=== PATIENT | male | born 1965 | race Caucasian/White ===

== ENCOUNTER → 2018-01-08 | Outpatient (CLI) | payer BC ==
[~2018-01-08] MED LIST: ALBU1AER9 INH; SYMIN160 INH; UMEC1INH INH
[2018-01-08 10:58] LABS: BASO % 0.6 %; BASO ABS # 0.04 K/uL (0-0.2); EOS % 2.6 %; EOS ABS # 0.19 K/uL (0-0.5); HEMATOCRIT 40.8 % (42-52); HEMOGLOBIN 14.8 g/dL (14.0-18.0); IG# 0.01 K/uL (0.00-0.02); LYMPH % 22.5 %; LYMPH ABS # 1.63 K/uL (1.2-3.4); MEAN CELL VOLUME 85.5 fL (80-100); MEAN CORPUSCULAR HGB CONC 36.3 g/dl (32-36); MEAN PLATELET VOLUME 10.7 fL (7.4-10.4); MONO ABS # 0.65 K/uL (0.11-0.59); NEUT % 65.2 %; NEUT ABS # 4.74 K/uL (1.4-6.5); PLATELET COUNT 199 K/uL (130-400); RED CELL DISTRIBUTION WIDTH CV 12.8 % (11.5-14.5); RED CELL DISTRIBUTION WIDTH SD 39.8 fL (36.4-46.3); WHITE BLOOD COUNT 7.26 K/uL (4.8-10.8)
[2018-01-08 11:04] LABS: BLOOD UREA NITROGEN 23 mg/dl (7-18); CALCIUM 8.9 mg/dl (8.5-10.1); CARBON DIOXIDE 29 mmol/L (21-32); CHOLESTEROL 184 mg/dl (0-200); CREATININE 1.25 mg/dl (0.60-1.40); GLUCOSE 79 mg/dl (70-99); POTASSIUM 3.6 mmol/L (3.5-5.1); SODIUM 139 mmol/L (136-145)
[2018-01-08 11:08] LABS: LDL CHOLESTEROL CALCULATED 123 mg/dl
== END | disposition home or self-care (01) ==
LOC: C.LABBC 08:37
PROVIDERS: ATTEND Internal Medicine
DX: J44.9 Chronic obstructive pulmonary disease, unspecified (principal); E78.5 Hyperlipidemia, unspecified; Z12.5 Encounter for screening for malignant neoplasm of prostate

== ENCOUNTER 2022-11-16 01:48 | Inpatient (IN) ==
[2022-11-16] MEDS ORDERED: methylPREDNISolone 125 MG/2 ML VIAL IV STA ×2 (02:56→03:31)
[2022-11-16] MEDS ORDERED: cefTRIAXone SODIUM 2,000 MG/70 ML BAG IV STA (02:56)
[2022-11-16] MEDS ORDERED: AZITHROMYCIN 250 MG TAB PO ONE (02:56)
[2022-11-16] MEDS ORDERED: ALBUT/IPRATROP 3MG/0.5MG NEB 3 ML VIAL NEB STA (02:56)
[2022-11-16 03:02] LABS: Influenza B virus by PCR Negative (Neg); RSV by PCR Negative (Neg); SARS CoV2 RNA(COVID-19) Ceph NEGATIVE (Negative)
[2022-11-16] MEDS ORDERED: ACETAMINOPHEN 1,000 MG/100 ML VIAL IV STA (03:10)
[2022-11-16 03:11] LABS: Influenza A virus by PCR Positive (Neg)
--- NOTE | 2022-11-16 03:15 | Emergency Department Note ---
History of Present Illness General Chief complaint: Shortness of Breath/Dyspnea Stated complaint: SOB,CHEST PAIN Time Seen by Provider: 11/16/22 02:23 Source: patient Mode of arrival: ambulatory Limitations: no limitations History of Present Illness Provider complaint: Shortness of breath This is a 56-year-old male presents emerged department due to worsening shortness of breath. Patient states he first began feeling ill over the weekend with chills, decreased appetite, and fatigue. He states this worsened and he began noticing he was increasingly short of breath. He states he has had a mild cough, no hemoptysis. Patient states he has a history of asthma. He states he gets injections for his asthma as well as has inhalers at home. He states as his breathing began to feel more labored, he was using his albuterol inhaler more frequently. He states he gets minimal temporary relief from this. He yelena es any prior history of pneumonia, denies any known sick contacts. Patient states he has not had anything to eat or drink in approximately 24 hours, and is continued to feel worse. He denies any overt vomiting or diarrhea. Patient states with application of oxygen via nursing staff in triage he does feel his breathing is easier. I was alerted by nursing staff and x-ray crop and soil technician of abnormal chest x-ray that was performed while patient was still in the triage waiting area due to concern for accompanying hypoxia. Home Medications Medication Instructions Recorded Confirmed Type albuterol sulfate 90 mcg/actuation See Rx Instructions inhalation 12/22/20 09/25/22 Rx aerosol inhaler .COMPLEX #2 grams amlodipine 5 mg tablet 5 mg PO QPM #90 tabs 10/04/21 09/25/22 Rx benralizumab 30 mg/mL subcutaneous See Rx Instructions .Route 07/18/22 09/25/22 Rx syringe (Fasenra) .COMPLEX #1 mL nystatin 100,000 unit/gram topical 1 applic topical BID #30 grams 09/25/22 09/25/22 Rx cream budesonide-formoterol HFA 160 2 puff inhalation BID #10.2 grams 11/15/22 Rx mcg-4.5 mcg/actuation aerosol inhaler (Symbicort) Allergies Allergy/AdvReac Type Severity Reaction Status Date / Time latex Allergy Unknown RED Verified 05/23/22 09:32 No Known Drug Allergies Allergy Unknown . Verified 05/23/22 09:32 Past Med/Surg History Medical History Asthma rare use of PRN inh COPD (chronic obstructive pulmonary disease) History of colon polyps History of depression HTN (hypertension) TMJ (temporomandibular joint disorder) Surgical History History of colonoscopy History of mandibular surgery History of wisdom tooth extraction Family History Father Myocardial infarction Sister Depression Aunt Depression Grandmother (Paternal) Depression Brother Schizophrenia Family/Other Heart disease Denies family history of Ovarian cancer Prostate cancer Breast cancer Colorectal cancer Social History Smoking Status: Never smoker Second Hand Exposure: No; Do You Dip or Chew Tobacco: No; Hx Alcohol Use: No Hx Substance Use: No Preferred Language: Ghanaian Communication Ability: Effective 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 Required: No Beliefs That Will Affect Care: Nondenominational marital status: Single Current Living Situation: Alone current occupational status: employed 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 [employer] Feels Safe at Home: Yes Safety Concerns: Feels Safe At This Time Childhood Exposure to Second-Hand Smoke: No Dental Care, Regularly: Yes Physical Activity Frequency: 1-2 Times per Week Seatbelt Use: always Sunscreen Use: No Assistive Devices: None Review of Systems A total of 10 systems reviewed and were otherwise negative All systems reviewed & are unremarkable except as noted in HPI & below Physical Exam Vital Signs Vital Signs - 24 hr 11/16/22 01:58 11/16/22 02:05 11/16/22 02:01 Temperature 37.9 C H Temperature Source Temporal Artery Scan Pulse Rate 96 H Pulse Rate [Apical] Respiratory Rate 22 Respiratory Effort / Characteristics Non-Labored Spontaneous Respiratory Depth Normal Blood Pressure 134/91 Blood Pressure [Left Arm] Blood Pressure Mean 105 Blood Pressure Mean [Left Arm] Blood Pressure Position [Left Arm] Pulse Oximetry 83 L 83 L Oxygen Delivery Method Room Air Nasal Cannula Nasal Cannula Oxygen Flow Rate 0 Fraction of Inspired Oxygen Sepsis Recent Fever Within 48 Hours No Sepsis New/Unexplained Change in Mental Status No Sepsis Action Taken by Nursing No Action Required Oxygen Flow Rate - Titration 3 4 Pulse Oximetry Post Tiitration 91 90 01/05/23 02:58 11/16/22 02:58 11/16/22 04:22 Temperature Temperature Source Pulse Rate Pulse Rate [Apical] 88 92 H Respiratory Rate 24 30 H Respiratory Effort / Characteristics Labored Short of Breath Labored Accessory Muscle Use Labored Retracting Short of Breath Respiratory Depth Deep Blood Pressure Blood Pressure [Left Arm] 105/68 Blood Pressure Mean Blood Pressure Mean [Left Arm] 80 Blood Pressure Position [Left Arm] Lying Pulse Oximetry 95 95 Oxygen Delivery Method Nasal Cannula Nasal Cannula BiPAP Oxygen Flow Rate 4 4 Fraction of Inspired Oxygen 50 Sepsis Recent Fever Within 48 Hours Sepsis New/Unexplained Change in Mental Status Sepsis Action Taken by Nursing Oxygen Flow Rate - Titration Pulse Oximetry Post Tiitration GENERAL: alert, unwell appearing, well nourished, mild distress, non-toxic EYE EXAM: normal conjunctiva, PERRL and EOM's grossly intact OROPHARYNX: no exudate, no erythema, lips, buccal mucosa, and tongue normal and mucous membranes are dry NECK: supple, no nuchal rigidity, no adenopathy, non-tender LUNGS: Normal chest wall mechanics, decreased breath sounds bilaterally, worse on the left, rhonchi noted at the left base HEART: no murmurs, S1 normal and S2 normal ABDOMEN: abdomen soft, non-tender, normo-active bowel sounds, no masses, no rebound or guarding. BACK: Back is symmetrical on inspection and there is no deformity, no midline tenderness, no CVA tenderness. SKIN: no rashes and no bruising UPPER EXTREMITIES: upper extremities are grossly normal. FROM, nml pulses b/l. LOWER EXTREMITIES: No pitting edema. FROM, nml pulses b/l. NEURO EXAM: Normal sensorium, cranial nerves II-XII grossly intact, normal speech, no gross weakness of arms, no gross weakness of legs. Gross sensation intact. Course Course 030: Pt appears more uncomfortable. Oxygen increased. 334: Patient converted to high flow nasal cannulae after discussion with the hospitalist as patient's sats have begun to drop and nursing staff was titrating up oxygen via nasal cannula and then into a nonrebreather. 0400: Patient states that he does feel his breathing is beginning to ease while on the high flow nasal cannula although visibly still appears tachypneic and uncomfortable sitting upright in bed. RT is preparing BiPAP at bedside. 0425: Patient appears slightly more comfortable on BiPAP. He states that he does feel his breathing is easier. Administered Medications Amlodipine Besylate (Amlodipine Besylate 5 Mg Tab) 5 mg PO QPM LAINE Stop: 12/16/22 20:59 Last Admin: 11/17/22 20:46 Dose: 5 mg Documented By: Admin: 11/16/22 20:32 Dose: Not Given Documented By: ROMAINE Enoxaparin Sodium (Enoxaparin Inj 40 Mg/0.4 Ml Syr) 40 mg SQ Q24H LAINE Stop: 12/16/22 08:59 Last Admin: 11/17/22 08:07 Dose: 40 mg Documented By: Admin: 11/16/22 09:06 Dose: 40 mg Documented By: [id number] Fluticasone/Vilanterol (Fluticasone/Vilanterol 200/25mcg 14 Puffs/Inhaler) 1 puffs INH DAILY LAINE Stop: 12/16/22 08:59 Last Admin: 11/17/22 08:06 Dose: 1 puffs Documented By: Admin: 11/16/22 09:06 Dose: 1 puffs Documented By: [id number] Guaifenesin (Guaifenesin 600 Mg Tabcr) 1,200 mg PO Q12 LAINE Stop: 12/16/22 08:59 Last Admin: 11/17/22 20:46 Dose: 1,200 mg Documented By: Admin: 11/17/22 08:07 Dose: 1,200 mg Documented By: Admin: 11/16/22 19:58 Dose: 1,200 mg Documented By: [facility] Admin: 11/16/22 09:06 Dose: 1,200 mg Documented By: [id number] Azithromycin 500 mg/ Dextrose 255 mls @ 125 mls/hr IV Q24H LAINE Stop: 11/23/22 03:59 Last Infusion: 11/18/22 06:27 Dose: 0 mls/hr Documented By: Admin: 11/18/22 04:03 Dose: 125 mls/hr Documented By: Infusion: 11/17/22 08:11 Dose: 0 mls/hr Documented By: Admin: 11/17/22 04:27 Dose: 255 mls/hr Documented By: Infusion: 11/16/22 07:05 Dose: 0 mls/hr Documented By: Admin: 11/16/22 04:48 Dose: 125 mls/hr Documented By: Parenteral Electrolytes (Normosol-R) 1,000 mls @ 125 mls/hr IV .Q8H LAINE Stop: 12/16/22 05:05 Last Admin: 11/18/22 04:04 Dose: 125 mls/hr Documented By: Infusion: 11/18/22 04:04 Dose: 125 mls/hr Documented By: Admin: 11/17/22 20:47 Dose: 125 mls/hr Documented By: Infusion: 11/17/22 19:59 Dose: 125 mls/hr Documented By: Admin: 11/17/22 11:59 Dose: 125 mls/hr Documented By: Infusion: 11/17/22 11:59 Dose: 125 mls/hr Documented By: Admin: 11/17/22 04:28 Dose: 125 mls/hr Documented By: Infusion: 11/17/22 04:01 Dose: 125 mls/hr Documented By: Admin: 11/16/22 20:01 Dose: 125 mls/hr Documented By: Infusion: 11/16/22 20:01 Dose: 125 mls/hr Documented By: [facility] Admin: 11/16/22 13:57 Dose: 125 mls/hr Documented By: [id number] Infusion: 11/16/22 13:44 Dose: 125 mls/hr Documented By: [id number] Admin: 11/16/22 05:44 Dose: 125 mls/hr Documented By: STEVO Ceftriaxone Sodium 1,000 mg/ (Dextrose) 50 mls @ 100 mls/hr IV Q24H LAINE; Protocol Stop: 11/24/22 11:59 Last Infusion: 11/17/22 12:34 Dose: 0 mls/hr Documented By: Admin: 11/17/22 11:58 Dose: 100 mls/hr Documented By: EBONY Insulin Aspart (Insulin Aspart Per Unit) 0 units SC ACHS LAINE Stop: 12/16/22 07:29 Last Admin: 11/17/22 20:53 Dose: 1 units Documented By: NATANAEL Co-signed By: ZHAO Admin: 11/17/22 17:57 Dose: 2 units Documented By: AMS Co-signed By: MARILOU Admin: 11/17/22 11:54 Dose: 4 units Documented By: EBONY Co-signed By: NICKOLAS Admin: 11/17/22 08:06 Dose: 4 units Documented By: EBONY Co-signed By: VIVIANA Admin: 11/16/22 20:10 Dose: 1 units Documented By: ROMAINE Co-signed By: GABRIELLA Admin: 11/16/22 17:20 Dose: 2 units Documented By: [id number] Co-signed By: GABBIE Admin: 11/16/22 12:57 Dose: 2 units Documented By: [id number] Co-signed By: AMY Admin: 11/16/22 08:52 Dose: 2 units Documented By: [id number] Co-signed By: GABBIE Levalbuterol HCl (Levalbuterol Hcl 0.63 Mg/3 Ml Neb) 0.63 mg NEB Q4R LAINE; Protocol Stop: 12/16/22 03:59 Last Admin: 11/18/22 03:08 Dose: 0.63 mg Documented By: VIVIANA(2) Admin: 11/17/22 23:06 Dose: 0.63 mg Documented By: VIVIANA(2) Admin: 11/17/22 20:04 Dose: 0.63 mg Documented By: VIVIANA(2) Admin: 11/17/22 15:57 Dose: 0.63 mg Documented By: Admin: 11/17/22 10:52 Dose: 0.63 mg Documented By: Admin: 11/17/22 07:03 Dose: 0.63 mg Documented By: Admin: 11/17/22 03:52 Dose: 0.63 mg Documented By: Admin: 11/16/22 23:20 Dose: 0.63 mg Documented By: Admin: 11/16/22 20:10 Dose: 0.63 mg Documented By: Admin: 11/16/22 14:48 Dose: 0.63 mg Documented By: Admin: 11/16/22 11:46 Dose: 0.63 mg Documented By: Admin: 11/16/22 05:52 Dose: 0.63 mg Documented By: Admin: 11/16/22 04:19 Dose: 0.63 mg Documented By: EML Melatonin (Melatonin 3 Mg Tab) 3 mg PO HS PRN PRN Reason: Sleep Stop: 12/17/22 11:03 Last Admin: 11/17/22 20:58 Dose: 3 mg Documented By: NATANAEL Oseltamivir Phosphate (Oseltamivir Phosphate 75 Mg Cap) 75 mg PO BID LAINE; Protocol Stop: 11/21/22 08:59 Last Admin: 11/17/22 20:46 Dose: 75 mg Documented By: Admin: 11/17/22 08:06 Dose: 75 mg Documented By: Admin: 11/16/22 19:58 Dose: 75 mg Documented By: Admin: 11/16/22 09:05 Dose: 75 mg Documented By: [id number] Polyethylene Glycol (Polyethylene (Miralax) 17 Gm Pack) 34 gm PO BID LAINE Stop: 12/16/22 20:59 Last Admin: 11/17/22 20:54 Dose: 34 gm Documented By: Admin: 11/17/22 08:07 Dose: 34 gm Documented By: Admin: 11/16/22 19:59 Dose: 34 gm Documented By: ROMAINE Simethicone (Simethicone 80 Mg Chew) 80 mg PO Q6H PRN PRN Reason: Gas or Constipation Stop: 12/16/22 16:13 Last Admin: 11/16/22 18:06 Dose: 80 mg Documented By: [id number] Discontinued Medications Albuterol (Albut/Ipratrop 3mg/0.5mg Neb 3 Ml Vial) 3 ml NEB NOW STA; Protocol Stop: 11/16/22 02:57 Last Admin: 11/16/22 03:09 Dose: 3 ml Documented By: Azithromycin (Azithromycin 250 Mg Tab) 500 mg PO NOW ONE Stop: 11/16/22 02:57 Last Admin: 11/16/22 08:00 Dose: Not Given Documented By: [id number] Sodium Chloride (Nss 1000ml) 1,000 mls @ 999 mls/hr IV .Q1H1M LAINE Stop: 11/16/22 05:00 Last Infusion: 11/16/22 04:46 Dose: 0 mls/hr Documented By: Admin: 11/16/22 03:37 Dose: 999 mls/hr Documented By: Infusion: 11/16/22 03:37 Dose: 999 mls/hr Documented By: Admin: 11/16/22 03:17 Dose: 999 mls/hr Documented By: Ceftriaxone Sodium (Rocephin) 2,000 mg in 70 mls @ 140 mls/hr IV NOW STA Stop: 11/16/22 03:25 Last Admin: 11/16/22 08:00 Dose: Not Given Documented By: [id number] Acetaminophen (Ofirmev) 1,000 mg in 100 mls @ 400 mls/hr IV NOW STA Stop: 11/16/22 03:24 Last Infusion: 11/16/22 03:55 Dose: 0 mls/hr Documented By: Admin: 11/16/22 03:15 Dose: 400 mls/hr Documented By: Magnesium Sulfate/Dextrose (Magnesium Sulfate / D5w) 1 gm in 100 mls @ 50 mls/hr IV Q2H LAINE Stop: 11/16/22 07:44 Last Infusion: 11/16/22 08:00 Dose: 0 mls/hr Documented By: [id number] Admin: 11/16/22 05:44 Dose: 50 mls/hr Documented By: Infusion: 11/16/22 05:44 Dose: 50 mls/hr Documented By: Admin: 11/16/22 03:54 Dose: 50 mls/hr Documented By: Vancomycin HCl 1,500 mg/ (Sodium Chloride) 530 mls @ 200 mls/hr IV 0430 ONE Stop: 11/16/22 07:08 Last Admin: 11/16/22 05:46 Dose: 200 mls/hr Documented By: STEVO Cefepime HCl 2,000 mg/ Syringe 20 mls @ 5 mls/min IV Q8H [facility]; Protocol Stop: 11/23/22 03:59 Last Admin: 11/17/22 04:27 Dose: 5 mls/min Documented By: Admin: 11/16/22 20:10 Dose: 5 mls/min Documented By: Admin: 11/16/22 12:58 Dose: 5 mls/min Documented By: [id number] Admin: 11/16/22 04:47 Dose: 5 mls/min Documented By: Methylprednisolone 40 mg/ (Syringe) 0.64 mls @ 1.5 mls/min IV Q6H LAINE Stop: 12/16/22 09:59 Last Admin: 11/17/22 09:14 Dose: 1.5 mls/min Documented By: Admin: 11/17/22 04:28 Dose: 1.5 mls/min Documented By: Admin: 11/16/22 21:17 Dose: 1.5 mls/min Documented By: Admin: 11/16/22 18:06 Dose: 1.5 mls/min Documented By: [id number] Admin: 11/16/22 10:45 Dose: 1.5 mls/min Documented By: [id number] Vancomycin HCl 1,500 mg/ (Sodium Chloride) 530 mls @ 200 mls/hr IV Q24H LAINE; Protocol Stop: 11/23/22 11:59 Last Infusion: 11/16/22 15:37 Dose: 0 mls/hr Documented By: [id number] Admin: 11/16/22 12:58 Dose: 200 mls/hr Documented By: [id number] Vancomycin HCl 1,000 mg/ (Sodium Chloride) 270 mls @ 200 mls/hr IV Q12H LAINE; P rotocol Stop: 11/24/22 08:59 Last Infusion: 11/17/22 11:21 Dose: 0 mls/hr Documented By: Admin: 11/17/22 09:14 Dose: 200 mls/hr Documented By: EBONY Methylprednisolone (Methylprednisolone 125 Mg/2 Ml Vial) 60 mg IV NOW STA Stop: 11/16/22 02:57 Last Admin: 11/16/22 03:09 Dose: 60 mg Documented By: Methylprednisolone (Methylprednisolone 125 Mg/2 Ml Vial) 60 mg IV NOW STA Stop: 11/16/22 03:32 Last Admin: 11/16/22 03:55 Dose: 60 mg Documented By: Polyethylene Glycol (Polyethylene (Miralax) 17 Gm Pack) 17 gm PO ONE ONE Stop: 11/16/22 16:15 Last Admin: 11/16/22 17:21 Dose: 17 gm Documented By: [id number] Critical Care Time Critical Care Time: Yes Total Critical Care Time: 41 Critical care of 41 min performed to assess and manage high likelihood of life- threatening acute hypoxic respiratory failure, involving labs and imaging performed with assessment to evaluate acute hypoxic respiratory failure diagnosis with frequent reassessment. This time includes bedside time, treatment discussions with patient/family/consultants, documentation time and excludes procedure time. Medical Decision Making Differential Diagnosis Differential diagnoses includes but is not limited to pneumonia, bronchitis, COPD/Asthma exacerbation, pneumothorax, pulmonary embolism, congestive heart failure, acute coronary syndrome Medical Records Attestation: I reviewed the patient's medical records. Home Medications Current Medication List: was personally reviewed by me Laboratory Data Attestation: I reviewed the patient's lab results. 11/16/22 02:45 11/16/22 02:45 Lab Results 11/16/22 11/16/22 11/16/22 Range/Units 02:05 02:45 02:45 WBC 6.71 (4.8-10.8) K/ul RBC 4.79 (4.63-6.08) M/uL Hgb 14.6 (14.0-18.0) g/dl Hct 41.7 (40.1-51.0) % MCV 87.1 (80.0-100.0) fL MCH 30.5 (25.0-34.0) pg MCHC 35.0 (32.0-36.0) g/dL RDW Std Deviation 39.5 (36.4-46.3) fL RDW Coeff of Omega 12.4 (11.5-14.5) % Plt Count 159 (130-400) K/uL MPV 10.7 (9.4-12.4) fL Immature Gran % (Auto) 0.4 % Neut % (Auto) 85.0 % Lymph % (Auto) 3.7 % Blount % (Auto) 10.3 % Eos % (Auto) 0.0 % Baso % (Auto) 0.6 % Neut # (Auto) 5.70 (1.4-6.5) K/uL Lymph # (Auto) 0.25 L (1.2-3.4) K/uL Blount # (Auto) 0.69 (0.24-0.82) K/uL Eos # (Auto) 0.00 (0-0.50) K/uL Baso # (Auto) 0.04 (0-0.2) K/uL Immature Gran # (Auto) 0.03 H (0.00-0.02) K/uL Toxic Vacuolation 1+ POC pH (7.35-7.45) POC pCO2 (35-46) mmHg POC pO2 (80-95) mmHg POC HCO3 (19-24) gladys/L POC Total CO2 (24-31) mmol/L POC Base Excess (-9-1.8) gladys/L POC ABG O2 Sat (90-95) % Sodium 133 L (136-145) mmol/L Potassium TNP Chloride 98 (98-107) mmol/L Carbon Dioxide 24 (21-32) mmol/L Anion Gap 11 (3-11) BUN 26 H (6-23) mg/dl Creatinine 1.14 (0.6-1.4) mg/dl Est Cr Clr Drug Dosing 70.3 ml/min Est GFR ( Amer) 82.3 ml/min Est GFR (Non-Af Amer) 71.0 ml/min BUN/Creatinine Ratio 22.8 H (10-20) Glucose 150 H (70-99(Fasting)) mg/dl Estimat Average Glucose mg/dl Hemoglobin A1c (4.5-5.6) % Lactate (0.4-2.0) mmol/L Calcium 7.9 L (8.5-10.1) mg/dl Magnesium 1.7 (1.7-2.4) mg/dl Total Bilirubin 0.9 (0.2-1.0) mg/dl AST TNP ALT 23 (7-52) U/L Alkaline Phosphatase 53 (34-104) U/L Troponin I High Sens 12.9 (0-20) pg/ml Total Protein 7.2 (6.0-8.3) gm/dl Albumin 3.8 (3.4-5.0) gm/dl Globulin 3.4 (2.5-4.0) gm/dl Albumin/Globulin Ratio 1.1 (0.9-2) Procalcitonin (0-0.5) ng/ml SARS-CoV-2 (PCR) NEGATIVE (Negative) Influenza Type A (PCR) Positive A* (Neg) Influenza Type B (PCR) Negative (Neg) RSV (RT-PCR) Negative (Neg) 11/16/22 11/16/22 11/16/22 Range/Units 02:45 02:45 03:50 WBC (4.8-10.8) K/ul RBC (4.63-6.08) M/uL Hgb (14.0-18.0) g/dl Hct (40.1-51.0) % MCV (80.0-100.0) fL MCH (25.0-34.0) pg MCHC (32.0-36.0) g/dL RDW Std Deviation (36.4-46.3) fL RDW Coeff of Omega (11.5-14.5) % Plt Count (130-400) K/uL MPV (9.4-12.4) fL Immature Gran % (Auto) % Neut % (Auto) % Lymph % (Auto) % Blount % (Auto) % Eos % (Auto) % Baso % (Auto) % Neut # (Auto) (1.4-6.5) K/uL Lymph # (Auto) (1.2-3.4) K/uL Blount # (Auto) (0.24-0.82) K/uL Eos # (Auto) (0-0.50) K/uL Baso # (Auto) (0-0.2) K/uL Immature Gran # (Auto) (0.00-0.02) K/uL Toxic Vacuolation POC pH (7.35-7.45) POC pCO2 (35-46) mmHg POC pO2 (80-95) mmHg POC HCO3 (19-24) gladys/L POC Total CO2 (24-31) mmol/L POC Base Excess (-9-1.8) gladys/L POC ABG O2 Sat (90-95) % Sodium (136-145) mmol/L Potassium 4.5 Chloride (98-107) mmol/L Carbon Dioxide (21-32) mmol/L Anion Gap (3-11) BUN (6-23) mg/dl Creatinine (0.6-1.4) mg/dl Est Cr Clr Drug Dosing ml/min Est GFR ( Amer) ml/min Est GFR (Non-Af Amer) ml/min BUN/Creatinine Ratio (10-20) Glucose (70-99(Fasting)) mg/dl Estimat Average Glucose 114 mg/dl Hemoglobin A1c 5.6 (4.5-5.6) % Lactate (0.4-2.0) mmol/L Calcium (8.5-10.1) mg/dl Magnesium (1.7-2.4) mg/dl Total Bilirubin (0.2-1.0) mg/dl AST 29 ALT (7-52) U/L Alkaline Phosphatase (34-104) U/L Troponin I High Sens (0-20) pg/ml Total Protein (6.0-8.3) gm/dl Albumin (3.4-5.0) gm/dl Globulin (2.5-4.0) gm/dl Albumin/Globulin Ratio (0.9-2) Procalcitonin 28.33 H (0-0.5) ng/ml SARS-CoV-2 (PCR) (Negative) Influenza Type A (PCR) (Neg) Influenza Type B (PCR) (Neg) RSV (RT-PCR) (Neg) 11/16/22 11/16/22 Range/Units 03:52 03:54 WBC (4.8-10.8) K/ul RBC (4.63-6.08) M/uL Hgb (14.0-18.0) g/dl Hct (40.1-51.0) % MCV (80.0-100.0) fL MCH (25.0-34.0) pg MCHC (32.0-36.0) g/dL RDW Std Deviation (36.4-46.3) fL RDW Coeff of Omega (11.5-14.5) % Plt Count (130-400) K/uL MPV (9.4-12.4) fL Immature Gran % (Auto) % Neut % (Auto) % Lymph % (Auto) % Blount % (Auto) % Eos % (Auto) % Baso % (Auto) % Neut # (Auto) (1.4-6.5) K/uL Lymph # (Auto) (1.2-3.4) K/uL Blount # (Auto) (0.24-0.82) K/uL Eos # (Auto) (0-0.50) K/uL Baso # (Auto) (0-0.2) K/uL Immature Gran # (Auto) (0.00-0.02) K/uL Toxic Vacuolation POC pH 7.20 L (7.35-7.45) POC pCO2 69 H (35-46) mmHg POC pO2 82 (80-95) mmHg POC HCO3 27 H (19-24) gladys/L POC Total CO2 29 (24-31) mmol/L POC Base Excess -1.0 (-9-1.8) gladys/L POC ABG O2 Sat 93.0 (90-95) % Sodium (136-145) mmol/L Potassium Chloride (98-107) mmol/L Carbon Dioxide (21-32) mmol/L Anion Gap (3-11) BUN (6-23) mg/dl Creatinine (0.6-1.4) mg/dl Est Cr Clr Drug Dosing ml/min Est GFR ( Amer) ml/min Est GFR (Non-Af Amer) ml/min BUN/Creatinine Ratio (10-20) Glucose (70-99(Fasting)) mg/dl Estimat Average Glucose mg/dl Hemoglobin A1c (4.5-5.6) % Lactate 1.9 (0.4-2.0) mmol/L Calcium (8.5-10.1) mg/dl Magnesium (1.7-2.4) mg/dl Total Bilirubin (0.2-1.0) mg/dl AST ALT (7-52) U/L Alkaline Phosphatase (34-104) U/L Troponin I High Sens (0-20) pg/ml Total Protein (6.0-8.3) gm/dl Albumin (3.4-5.0) gm/dl Globulin (2.5-4.0) gm/dl Albumin/Globulin Ratio (0.9-2) Procalcitonin (0-0.5) ng/ml SARS-CoV-2 (PCR) (Negative) Influenza Type A (PCR) (Neg) Influenza Type B (PCR) (Neg) RSV (RT-PCR) (Neg) Imaging Data Attestation: I personally reviewed and interpreted this imaging study as f naun: My Impression: cxr: left lower lobe infiltrate, no cm, no wide mediastinum ECG Data Attestation: I personally reviewed and interpreted this ECG as follows: Indication: + SOB/dyspnea Rate (beats per minute): 80 Rhythm: + normal sinus ECG Intervals/blocks: + Normal QRS and + Normal QT ECG [place]: + Normal ECG ST segments: + Normal ST segments MDM Narrative An order was placed for continuous cardiac monitoring. The monitor shows a rate of _88_ with _normal sinus_ rhythm. This is a 56 yo male who presents to the ER due to worsening dyspnea. Patient with a hx of asthma and recent evolving URI symptoms. Patient found to be hypoxic on arrival. Due to presentation on a day of high volume and acuity, nursing staff begin protocol orders in triage, I was contacted by [employer] after their cxr had apparent pathology and given nurse concern about patient appearance, I was asked to come see the patient urgently. Patient with apparent respiratory distress, but sats improved with oxygen supplementation. patient reported feeling improved. Labs had been drawn but additional were obtained after my evaluation. EKG and cxr interpreted by me. Patient given neb treatment, started on IV steroids and IV antibiotics. IV fluids also started due to concern for decreased intake and evolving sepsis. I contacted hospitalist for evaluation, however on recheck patient appeared to have increased WOB so we discussed additional resp support - RT was contacted to start HFNC. Patient again reported feeling improved, however ABG ordered by hospitalist appeared worse than originally thought, so patient transitioned to bipap. Patient began to improve. He did receive 30ml/kg of IVF. Patient with PNA on cxr and hx of asthma. Other labs reassuring, procal elevated. Impression & Plan Pneumonia, Elevated procalcitonin, Acute respiratory failure with hypoxia, Dyspnea Discharge Plan Visit Data Chief Complaint: Shortness of Breath/Dyspnea Stated Complaint: SOB,CHEST PAIN ED Provider: Basilia Rodrigez Discharge Problem: Pneumonia, Elevated procalcitonin, Acute respiratory failure with hypoxia, Dyspnea Patient Disposition: Admitted As Inpatient Discharge Instructions Interventions: ED Discharge Assessment Last Done: 11/16/22 06:25
[2022-11-16] MEDS: SODIUM CHLORIDE 0.9% 1000ML 1,000 ML IV SCH ×2 (03:17→03:37)
[2022-11-16 03:37] LABS: Troponin I High Sensitivity 12.9 pg/ml (0-20)
[2022-11-16 03:48] LABS: Alanine Aminotransferase 23 U/L (7-52); Albumin Globulin Ratio 1.1 (0.9-2); Albumin Level 3.8 gm/dl (3.4-5.0); Alkaline Phosphatase 53 U/L (34-104); Anion Gap 11 (3-11); BUN Creatinine Ratio 22.8 (10-20); Bilirubin,Total 0.9 mg/dl (0.2-1.0); Blood Urea Nitrogen 26 mg/dl (6-23); Calcium 7.9 mg/dl (8.5-10.1); Carbon Dioxide 24 mmol/L (21-32); Chloride 98 mmol/L (98-107); Creatinine Clr Calc Pharmacy 70.3 ml/min; Est GFR (African American) 82.3 ml/min; Globulin 3.4 gm/dl (2.5-4.0); Glucose 150 mg/dl (70-99(Fasting)); Magnesium 1.7 mg/dl (1.7-2.4); Sodium 133 mmol/L (136-145); Total Protein 7.2 gm/dl (6.0-8.3)
[2022-11-16] MEDS ORDERED: VANCOMYCIN CONSULT ACTIVE PRN (03:49)
[2022-11-16 03:50] LABS: Hematocrit (blood only) 41.7 % (40.1-51.0); Hemoglobin 14.6 g/dl (14.0-18.0); Mean Corpuscular Hemoglobin 30.5 pg (25.0-34.0); Mean Corpuscular Volume 87.1 fL (80.0-100.0); Mean Platelet Volume 10.7 fL (9.4-12.4); Platelet Count 159 K/uL (130-400); RDW Coefficient of Variation 12.4 % (11.5-14.5); RDW Standard Deviation 39.5 fL (36.4-46.3); Red Blood Count 4.79 M/uL (4.63-6.08); White Blood Count 6.71 K/ul (4.8-10.8)
[2022-11-16] MEDS ORDERED: LEVALBUTEROL HCL 0.63 MG/3 ML NEB NEB PRN (03:51)
[2022-11-16 03:52] LABS: Basophils # (auto) 0.04 K/uL (0-0.2); Basophils % (auto) 0.6 %; Immature Granulocytes # (auto) 0.03 K/uL (0.00-0.02); Immature Granulocytes % (auto) 0.4 %; Lymphocytes # (auto) 0.25 K/uL (1.2-3.4); Lymphocytes % (auto) 3.7 %; Monocytes # (auto) 0.69 K/uL (0.24-0.82); Monocytes % (auto) 10.3 %; Toxic Vacuolation 1+
[2022-11-16] MEDS: MAGNESIUM SULFATE / D5W 1 GM/100 ML BAG IV SCH ×2 (03:54→05:44)
[2022-11-16 04:10] LABS: iSTAT Arterial Blood Gas HCO3 27 meg/L (19-24); iSTAT Arterial Blood Gas pCO2 69 mmHg (35-46); iSTAT Arterial Blood Gas pO2 82 mmHg (80-95); iSTAT Carbon Dioxide 29 mmol/L (24-31)
[2022-11-16] MEDS: LEVALBUTEROL HCL 0.63 MG/3 ML NEB NEB SCH ×6 (04:19→23:20)
--- NOTE | 2022-11-16 04:19 | History & Physical Report ---
Date of Service November 16, 2022 Assessment & Plan (1) Acute respiratory failure with hypoxia and hypercapnia: Plan: Patient is influenza A positive with likely a superimposed bacterial pneumonia (multifocal/bibasilar, L>R). Patient is on Fasenra and is thus immunocompromised and susceptible to more severe/atypical infections. Also with asthma exacerbation 2/2 to flu/PNA. - admit to PCU (requested ICU tele overflow - patient will be going to 111) - initial ABG with pH 7.2, pCO2 69 and pHCO3 27 - acute non-compensated respiratory acidosis - received Duonebs x1, Mag sulfate 2gm IV, and SoluMedrol 120mg IV total in ED - appears more comfortable/stable on BiPAP with what appears to be adequate respiratory effort/gas exchange - will repeat ABG now (~1 hour post-BiPAP) - ICU well tester informed of patient's condition; he is FULL CODE and would like to proceed with intubation should this be necessary - start broad-spectrum abx - Vancomycin/Cefepime/Azithromycin - follow blood cultures - check [id number], urine legionella, MRSA nares - check CT chest w/o contrast - initially just met SIRS criteria for sepsis (HR/RR) - s/p 2L NSS boluses, continue with Normosol-R @125cc/hr - s/p SoluMedrol 120mg IV as stated above - continue with 40mg IV Q6H - Xopenex nebs Q4H scheduled and Q2H PRN (borderline tachycardia) (2) Pneumonia: Plan: Superimposed multifocal pneumonia likely 2/2 to influenza. Plan as above: check fungal/legionella labs, check CT chest, utilize broad- spectrum abx, trend blood cx (3) Asthma exacerbation: Plan: 2/2 to influenza/PNA as stated above. Plan as above: maintain BiPAP, IV steroids, scheduled/PRN nebs, pulmonary toilet (flutter valve, incentive spirometry, Mucinex BID). Continue home inhalers. (4) Influenza A: Plan: Likely impetus for current hospitalization. - start Tamiflu 75mg PO BID x5 days - otherwise plan as above (5) Hypertension: Plan: Continue home Amlodipine Plan FEN/GI: regular diet, Normosol-R @125cc/hr DVT Prophylaxis: Lovenox SQ Code Status: full code Disposition: PCU, ICU well tester informed of patient's condition and he will be on ICU telemetry overflow in the case he decompensates and requires intubation/ICU transfer History of Present Illness Chief Complaint: SOB Primary Care Provider: Cristian Jacques MD Hawk Nguyễn is a 56yo male with PMHx significant for moderate persistent asthma (on Symbicort/Fasenra, f/w Pulm/Allergy, FEV1 55% in 01/2022) and HTN who presented to [facility] ED on 11/16 for worsening shortness of breath at rest, productive cough, wheezing, subjective/fever chills and significantly decreased PO intake x3 days, with recent +sick contacts. He has been using Albuterol inhaler Q6H with [id number] relief in SOB/cough. Patient is vaccinated for influenza and up to date on COVID-19 vaccinations. Patient is a never smoker. Usually only "very rarely" uses PRN Albuterol and takes both Symbicort as well as Fasenra injections as prescribed. In the ED the patient was febrile to 37.9C and hypoxic to 83% on room air; initially improved to mid-90s on 4L/min nasal cannula. Additionally patient received SoluMedrol 60mg IV and Duonebs x1 before my examination. However during my examination the patient had very shallow breathing and appeared exhausted, with sats decreasing to low-80s on 4L. Subsequently was placed on high-flow NC at 30L; ABGs obtained stat which showed significant non-compensated respiratory acidosis: pH 7.2, pCO2 69, pHCO3 27 (no previous values to compare to). Patient was then placed on BiPAP and immediately started breathing more comfortably with more complete inspiration/expiration and more energy; was maintaining sats at 95% on 50% FiO2 with BiPAP. Labs significant for procalcitonin 28.33, significant lymphopenia 0.25, Na 13, Mg 1.7. Otherwise CBC/CMP/hsTroponin WNL. Influenza A positive. CXR with multifocal/bibasilar opacities (L>R). Blood cultures collected in ED. Patient also received 2L NSS boluses. Allergies Allergy/AdvReac Type Severity Reaction Status Date / Time latex Allergy Unknown RED Verified 05/23/22 09:32 No Known Drug Allergies Allergy Unknown . Verified 05/23/22 09:32 Home Medications Medication Instructions Recorded Confirmed Type albuterol sulfate 90 mcg/actuation See Rx Instructions inhalation 12/22/20 09/25/22 Rx aerosol inhaler .COMPLEX #2 grams amlodipine 5 mg tablet 5 mg PO QPM #90 tabs 10/04/21 09/25/22 Rx benralizumab 30 mg/mL subcutaneous See Rx Instructions .Route 07/18/22 09/25/22 Rx syringe (Fasenra) .COMPLEX #1 mL nystatin 100,000 unit/gram topical 1 applic topical BID #30 grams 09/25/22 09/25/22 Rx cream budesonide-formoterol HFA 160 2 puff inhalation BID #10.2 grams 11/15/22 Rx mcg-4.5 mcg/actuation aerosol inhaler (Symbicort) Past Med/Surg History Medical History Asthma rare use of PRN inh COPD (chronic obstructive pulmonary disease) History of colon polyps History of depression HTN (hypertension) TMJ (temporomandibular joint disorder) Surgical History History of colonoscopy History of mandibular surgery History of wisdom tooth extraction Family History Father Myocardial infarction Sister Depression Aunt Depression Grandmother (Paternal) Depression Brother Schizophrenia Family/Other Heart disease Denies family history of Ovarian cancer Prostate cancer Breast cancer Colorectal cancer Social History Smoking Status: Never smoker Second Hand Exposure: No; Do You Dip or Chew Tobacco: No; Hx Alcohol Use: No Hx Substance Use: No Preferred Language: Guamanian Communication Ability: Effective Automatic Pattern Edger Required: No Beliefs That Will Affect Care: Denominational marital status: Single Current Living Situation: Alone current occupational status: employed 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 NAD. Cooperative. Fatigued, although improved energy since starting on BiPAP. BiPAP in place. HEENT: Atraumatic, normocephalic. Pulm: Bibasilar crackles and scattered wheezes throughout, with decreased aeration bilaterally. Tachypneic, expiration through pursed lips, +tracheal tugging, +increased work of breathing. Cardiac: RRR, -mrg. Radial pulses intact and symmetrical. No LE edema. Capillary refill <3 seconds. Abdominal: soft, non-tender, non-distended, BS x 4\\ Skin: pale but warm and well-perfused Results & Data Results & Data ([facility]) Vital Signs (Past 12 Hours) Vital Signs Temp Pulse Pulse Resp BP BP Pulse Ox 11/16/22 02:58 88 24 105/68 95 11/16/22 02:58 11/16/22 02:01 83 L 11/16/22 02:05 11/16/22 01:58 37.9 C H 96 H 22 134/91 83 L O2 Del Method O2 Flow Rate 11/16/22 02:58 Nasal Cannula 4 11/16/22 02:58 Nasal Cannula 4 11/16/22 02:01 Nasal Cannula 0 11/16/22 02:05 Nasal Cannula 11/16/22 01:58 Room Air Code Status & VTE Plan VTE Prophylaxis Plan VTE Prophylaxis will be ordered: Yes Supervising Physician Co-Signing Physician Notes Acute respiratory failure with hypoxia and hypercapnia/influenza A/secondary bacterial pneumonia- ABG: pH 7.2, PCO2 69, P O2 84- Required transition from nasal cannula to nonrebreather mask to BiPAP rather quickly while in ED due to respiratory decompensation Vancomycin IV, cefepime 2 g IV every 12 hours and azithromycin 500 mg IV daily Initially to receive Duonebs every 4 hours while awake and every 2 hours when necessary, however, due to tachycardia, instead placed on Xopenex nebulizers every 4 hours, and then every [address] hours [address] needed Order [address] chest without contrast Received Solu-Medrol 125 mg IV in the ED Solu-Medrol 40 mg IV every 8 hours Tamiflu 75 mg p.o. twice daily x5 days Patient will be placed on telemetry overflow in the ICU Remaining orders and notations as noted Resident Activity Tracking Resident Involvement: Resident Care Provided Care Provided: Adult [facility]
[2022-11-16 04:23] LABS: Potassium 4.5 mmol/L (3.5-5.1)
[2022-11-16] MEDS ORDERED: VANCOMYCIN HCL 1,500 MG in SODIUM CHLORIDE 0.9% 500 ML IV ONE (04:30)
[2022-11-16] MEDS: CEFEPIME 2,000 MG in SYRINGE 0 ML IV SCH ×3 (04:47→20:10)
[2022-11-16] MEDS: AZITHROMYCIN 500 MG in DEXTROSE 5% 250 ML IV SCH (04:48)
[2022-11-16] MEDS: NORMOSOL-R 1,000 ML IV SCH ×3 (05:44→20:01)
[2022-11-16] MEDS ORDERED: GLUCOSE 10 TAB/TUBE PO PRN (05:52)
[2022-11-16] MEDS ORDERED: GLUCAGON FOR INJ 1 MG VIAL SQ PRN (05:52)
[2022-11-16] MEDS ORDERED: CARBOHYDRATES FOR HYPOGLYCEMIA PO PRN (05:52)
[2022-11-16] MEDS ORDERED: GLUCOSE 40% GEL 15 GM TUBE PO PRN (05:52)
[2022-11-16] MEDS ORDERED: DEXTROSE 50% 50 ML SYRINGE IV PRN (05:52)
[2022-11-16 06:02] LABS: iSTAT Allen Test Pass; iSTAT Art Bld Gas pCO2 Correct 45 mmHg (35-46); iSTAT Art Bld Gas pH Corrected 7.334 (7.35-7.45); iSTAT Arterial Blood Gas HCO3 24 meg/L (19-24); iSTAT Arterial Blood Gas pCO2 45 mmHg (35-46); iSTAT Arterial Blood Gas pH 7.33 (7.35-7.45); iSTAT Arterial Blood Gas pO2 103 mmHg (80-95); iSTAT Arterial Blood Gas pO2 C 103; iSTAT Carbon Dioxide 26 mmol/L (24-31); iSTAT FiO2 50 %; iSTAT Hematocrit 36 % (42-52); iSTAT Hemoglobin 12.2 g/dl (14.0-18.0); iSTAT Potassium 4.5 mmol/L (3.3-5.0); iSTAT Site R Radial; iSTAT Sodium 136 mmol/L (135-144)
--- NOTE | 2022-11-16 07:10 | Hospitalist Progress Note ---
Date of Service November 16, 2022 Assessment & Plan (1) Acute respiratory failure with hypoxia and hypercapnia: Plan: Hawk Nguyễn is a 56 y/o male with PMHx significant for moderate persistent asthma (on Symbicort/Fasenra, f/w Pulm/Allergy, FEV1 55% in 01/2022) and HTN who presented to [facility] ED on 11/16 for worsening shortness of breath at rest, productive cough, wheezing, subjective/fever chills and significantly decreased PO intake x3 days, with recent +sick contacts found to be hypoxic 83% and hypercapnic in the setting of flu A with probable superimposed bacterial pneumonia admitted for respiratory support with BiPAP, antibiotics, and observation. #Acute respiratory failure w/ hypoxia and hypercapnia in the setting of moderate persistent asthma exacerbation #Acute non-compensated respiratory acidosis #Influenza A w/superimposed bacterial pneumonia CXR with multifocal/bibasilar opacities (L>R). Patient is influenza A positive with likely a superimposed bacterial pneumonia (multifocal/bibasilar, L>R). Labs significant for procalcitonin 28.33, significant lymphopenia 0.25, Na 133, Mg 1.7. Otherwise CBC/CMP/hsTroponin WNL.Patient is on Fasenra and is thus immunocompromised and susceptible to more severe/atypical infections. Also with asthma exacerbation 2/2 to flu/PNA. Broad abx coverage as patient is clinically ill. Patient was using albuterol Q6 outpatient with minimal improvement on top of maintenance medications. Patient does not use oxygen at baseline. Patient required respiratory support with BiPAP due to respiratory fatigue and hypoventilation. ABG revealed acute non-compensated respiratory acidosis pH 7.2, pCO2 69, pHCO3 27 which improved with initiation of BiPAP pH 7.33 pCO2 45 HCO3 24. Patient then weaned off of BiPAP to NC. [] monitor respiratory status clinically and with ABG as indicated [] Duonebs - Xioenex Q4 LAINE Q2H PRN, Mag sulfate 2gm IV, and SoluMedrol 40 mg IV Q6H [] Tamiflu 75 mg PO BID x5 [] start broad-spectrum abx - Vancomycin/Cefepime/Azithromycin [] follow blood cultures [] check [id number], urine legionella, MRSA nares [] check CT chest w/o contrast [] initially just met SIRS criteria for sepsis (HR/RR) - s/p 2L NSS boluses, continue with Normosol-R @125cc/hr #Moderate persistent asthma with possible eosinophilic component Patient on Symbicort and Fasenra for maintenance and Albuterol for acute use. At baseline he rarely needs acute therapy and takes his maintenance meds as prescribed. Patient is a never smoker. Flu vaccinated. UTD on covid vaccines. #HTN Continue home Amlodipine FEN/GI: regular diet, Normosol-R @125cc/hr DVT Prophylaxis: Lovenox SQ Code Status: full code Disposition: PCU, ICU delivery architect informed of patient's condition and he will be on ICU telemetry overflow in the case he decompensates and requires intubation/ICU transfer (2) Pneumonia: (3) Asthma exacerbation: (4) Influenza A: (5) Hypertension: Admission and Anticipated Discharge Date Admission Date: November 16, 2022 Supervising Physician Co-Signing Physician Notes I personally examined the patient and verified all peterson points of history and exam, discussed case, and agree with decision making with Dr Do feeling better ovreall main complaint is bloated belly. van srun chronically constipated vitals ntoed nad heent nc at mmm lungs diminished base L surprisingly clear elsewhere abd soft mild distention mild tenderness no guarding/rebound/rigidity flu/pneumonia, acute hypercapnic > hypoxic respiratory failure - doing better, continue abx, steroids, supportive care. abd bloat - likely air/gas in GI from bipap and chronic constipation - off bipap, trial simethicone, miralax DVT proph - lovenox Subjective Patient notes feeling anxious. His breathing has improved since starting BiPAP. He denies any pain. No fevers or chills. Review of Systems Review of Systems: See HPI Physical Exam Physical Exam: General: A&Ox3. NAD. Cooperative. Anxious. BiPAP in place. HEENT: Atraumatic, normocephalic. Pulm: Breathing comfortably on BiPAP, breath sounds obscured by the sound of BiPAP. Slightly tachypneic Cardiac: RRR, -mrg. Radial pulses intact and symmetrical. No LE edema. Abdominal: soft, non-tender, non-distended Skin: pale but warm and well-perfused Results & Data Results & Data ([facility]) Vital Signs (Past 12 Hours) Vital Signs Temp Pulse Pulse Resp BP BP Pulse Ox 11/16/22 06:09 11/16/22 06:06 11/16/22 05:30 89 22 104/70 94 11/16/22 06:00 36.7 C 81 25 H 100/74 94 11/16/22 05:59 79 24 94 11/16/22 04:10 100 H 26 H 96 11/16/22 04:22 92 H 30 H 95 11/16/22 02:58 88 24 105/68 95 11/16/22 02:58 11/16/22 02:01 83 L 11/16/22 02:05 11/16/22 01:58 37.9 C H 96 H 22 134/91 83 L Pulse Ox O2 Del Method O2 Del Method O2 Flow Rate FiO2 11/16/22 06:09 BiPAP 40 11/16/22 06:06 94 BiPAP 11/16/22 05:30 BiPAP 50 11/16/22 06:00 BiPAP 40 11/16/22 05:59 40 11/16/22 04:10 50 11/16/22 04:22 BiPAP 50 11/16/22 02:58 Nasal Cannula 4 11/16/22 02:58 Nasal Cannula 4 11/16/22 02:01 Nasal Cannula 0 11/16/22 02:05 Nasal Cannula 11/16/22 01:58 Room Air Laboratory Results 11/16/22 11/16/22 11/16/22 Range/Units 11:32 11:27 10:53 WBC (4.8-10.8) K/ul RBC (4.63-6.08) M/uL Hgb (14.0-18.0) g/dl POC Hgb (14.0-18.0) g/dl Hct (40.1-51.0) % POC Hct (42-52) % MCV (80.0-100.0) fL MCH (25.0-34.0) pg MCHC (32.0-36.0) g/dL RDW Std Deviation (36.4-46.3) fL RDW Coeff of Omega (11.5-14.5) % Plt Count (130-400) K/uL MPV (9.4-12.4) fL Immature Gran % (Auto) % Neut % (Auto) % Lymph % (Auto) % [place] % (Auto) % Eos % (Auto) % Baso % (Auto) % Neut # (Auto) (1.4-6.5) K/uL Lymph # (Auto) (1.2-3.4) K/uL [place] # (Auto) (0.24-0.82) K/uL Eos # (Auto) (0-0.50) K/uL Baso # (Auto) (0-0.2) K/uL Immature Gran # (Auto) (0.00-0.02) K/uL Toxic Vacuolation Sample Site POC pH (7.35-7.45) POC pCO2 (35-46) mmHg POC pO2 (80-95) mmHg POC HCO3 (19-24) gladys/L POC Total CO2 (24-31) mmol/L POC Base Excess (-9-1.8) gladys/L ABG pH 7.41 (7.35-7.45) ABG pH (Temp Correct) (7.35-7.45) ABG pCO2 38 (35-46) mmHg ABG pCO2 (Temp Corrct (35-46) mmHg ABG pO2 110 H (80-95) mmHg POC ABG pO2 at Pt Temp ABG HCO3 24 (19-24) mmol/L POC ABG O2 Sat (90-95) % ABG O2 Saturation 99.4 H (90-95) % ABG Base Excess -0.3 (-9-1.8) mEq/L [place] Test Pos Oxygen Given 4 L O2 Delivery Device POC O2 Rate POC FiO2 % IPAP POC Sodium (135-144) mmol/L Sodium (136-145) mmol/L POC Potassium (3.3-5.0) mmol/L Potassium Chloride (98-107) mmol/L Carbon Dioxide (21-32) mmol/L Anion Gap (3-11) BUN (6-23) mg/dl Creatinine (0.6-1.4) mg/dl Est Cr Clr Drug Dosing ml/min Est GFR ( Amer) ml/min Est GFR (Non-Af Amer) ml/min BUN/Creatinine Ratio (10-20) Glucose (70-99(Fasting)) mg/dl POC Glucose 205 H (70-99) mg/dl Estimat Average Glucose mg/dl Hemoglobin A1c (4.5-5.6) % Lactate (0.4-2.0) mmol/L Calcium (8.5-10.1) mg/dl Magnesium (1.7-2.4) mg/dl Total Bilirubin (0.2-1.0) mg/dl AST ALT (7-52) U/L Alkaline Phosphatase (34-104) U/L Troponin I High Sens (0-20) pg/ml Total Protein (6.0-8.3) gm/dl Albumin (3.4-5.0) gm/dl Globulin (2.5-4.0) gm/dl Albumin/Globulin Ratio (0.9-2) Procalcitonin (0-0.5) ng/ml Urine Color Yellow Urine Appearance Clear (Clear) Urine pH 5.5 (4.5-7.5) Ur Specific [place] 1.019 (1.000-1.030) Urine Protein 1+ H (Negative) Urine Glucose (UA) Trace H (Negative) Urine Ketones Negative (Negative) Urine Blood Trace H (Negative) Urine Nitrite Negative (Negative) Urine Bilirubin Negative (Negative) Urine Urobilinogen Negative (Negative) Ur Leukocyte Esterase Negative (Negative) Urine WBC (Auto) 1-5 (0-5) /hpf Urine RBC (Auto) 0-4 (0-4) /hpf U Hyaline Cast (Auto) 5-10 H (0-5) /lpf U Epithel Cells (Auto) 10-20 H (0-5) /lpf Urine Bacteria (Auto) Negative (Negative) Urine Yeast Not Reportable Nasal Screen MRSA (PCR) (Negative) SARS-CoV-2 (PCR) (Negative) Influenza Type A (PCR) (Neg) Influenza Type B (PCR) (Neg) Urine Legionella Ag RSV (RT-PCR) (Neg) Beta-(1,3)-D-Glucan B-(1,3)-D-Glucan Intrp 11/16/22 11/16/22 11/16/22 Range/Units 10:53 07:10 05:46 WBC (4.8-10.8) K/ul RBC (4.63-6.08) M/uL Hgb (14.0-18.0) g/dl POC Hgb 12.2 L (14.0-18.0) g/dl Hct (40.1-51.0) % POC Hct 36 L (42-52) % MCV (80.0-100.0) fL MCH (25.0-34.0) pg MCHC (32.0-36.0) g/dL RDW Std Deviation (36.4-46.3) fL RDW Coeff of Omega (11.5-14.5) % Plt Count (130-400) K/uL MPV (9.4-12.4) fL Immature Gran % (Auto) % Neut % (Auto) % Lymph % (Auto) % [place] % (Auto) % Eos % (Auto) % Baso % (Auto) % Neut # (Auto) (1.4-6.5) K/uL Lymph # (Auto) (1.2-3.4) K/uL [place] # (Auto) (0.24-0.82) K/uL Eos # (Auto) (0-0.50) K/uL Baso # (Auto) (0-0.2) K/uL Immature Gran # (Auto) (0.00-0.02) K/uL Toxic Vacuolation Sample Site R Radial POC pH 7.33 L (7.35-7.45) POC pCO2 45 (35-46) mmHg POC pO2 103 H (80-95) mmHg POC HCO3 24 (19-24) gladys/L POC Total CO2 26 (24-31) mmol/L POC Base Excess -2.0 (-9-1.8) gladys/L ABG pH (7.35-7.45) ABG pH (Temp Correct) 7.334 L (7.35-7.45) ABG pCO2 (35-46) mmHg ABG pCO2 (Temp Corrct 45 (35-46) mmHg ABG pO2 (80-95) mmHg POC ABG pO2 at Pt Temp 103 ABG HCO3 (19-24) mmol/L POC ABG O2 Sat 97.0 H (90-95) % ABG O2 Saturation (90-95) % ABG Base Excess (-9-1.8) mEq/L [place] Test Pass Oxygen Given O2 Delivery Device BIPAP POC O2 Rate 10 POC FiO2 50 % IPAP 14 POC Sodium 136 (135-144) mmol/L Sodium (136-145) mmol/L POC Potassium 4.5 (3.3-5.0) mmol/L Potassium Chloride (98-107) mmol/L Carbon Dioxide (21-32) mmol/L Anion Gap (3-11) BUN (6-23) mg/dl Creatinine (0.6-1.4) mg/dl Est Cr Clr Drug Dosing ml/min Est GFR ( Amer) ml/min Est GFR (Non-Af Amer) ml/min BUN/Creatinine Ratio (10-20) Glucose (70-99(Fasting)) mg/dl POC Glucose 230 H (70-99) mg/dl Estimat Average Glucose mg/dl Hemoglobin A1c (4.5-5.6) % Lactate (0.4-2.0) mmol/L Calcium (8.5-10.1) mg/dl Magnesium (1.7-2.4) mg/dl Total Bilirubin (0.2-1.0) mg/dl AST ALT (7-52) U/L Alkaline Phosphatase (34-104) U/L Troponin I High Sens (0-20) pg/ml Total Protein (6.0-8.3) gm/dl Albumin (3.4-5.0) gm/dl Globulin (2.5-4.0) gm/dl Albumin/Globulin Ratio (0.9-2) Procalcitonin (0-0.5) ng/ml Urine Color Urine Appearance (Clear) Urine pH (4.5-7.5) Ur Specific [place] (1.000-1.030) Urine Protein (Negative) Urine Glucose (UA) (Negative) Urine Ketones (Negative) Urine Blood (Negative) Urine Nitrite (Negative) Urine Bilirubin (Negative) Urine Urobilinogen (Negative) Ur Leukocyte Esterase (Negative) Urine WBC (Auto) (0-5) /hpf Urine RBC (Auto) (0-4) /hpf U Hyaline Cast (Auto) (0-5) /lpf U Epithel Cells (Auto) (0-5) /lpf Urine Bacteria (Auto) (Negative) Urine Yeast Nasal Screen MRSA (PCR) (Negative) SARS-CoV-2 (PCR) (Negative) Influenza Type A (PCR) (Neg) Influenza Type B (PCR) (Neg) Urine Legionella Ag Pending RSV (RT-PCR) (Neg) Beta-(1,3)-D-Glucan B-(1,3)-D-Glucan Intrp 11/16/22 11/16/22 11/16/22 Range/Units 05:46 05:36 03:54 WBC (4.8-10.8) K/ul RBC (4.63-6.08) M/uL Hgb (14.0-18.0) g/dl POC Hgb (14.0-18.0) g/dl Hct (40.1-51.0) % POC Hct (42-52) % MCV (80.0-100.0) fL MCH (25.0-34.0) pg MCHC (32.0-36.0) g/dL RDW Std Deviation (36.4-46.3) fL RDW Coeff of Omega (11.5-14.5) % Plt Count (130-400) K/uL MPV (9.4-12.4) fL Immature Gran % (Auto) % Neut % (Auto) % Lymph % (Auto) % [place] % (Auto) % Eos % (Auto) % Baso % (Auto) % Neut # (Auto) (1.4-6.5) K/uL Lymph # (Auto) (1.2-3.4) K/uL [place] # (Auto) (0.24-0.82) K/uL Eos # (Auto) (0-0.50) K/uL Baso # (Auto) (0-0.2) K/uL Immature Gran # (Auto) (0.00-0.02) K/uL Toxic Vacuolation Sample Site POC pH 7.20 L (7.35-7.45) POC pCO2 69 H (35-46) mmHg POC pO2 82 (80-95) mmHg POC HCO3 27 H (19-24) gladys/L POC Total CO2 29 (24-31) mmol/L POC Base Excess -1.0 (-9-1.8) gladys/L ABG pH (7.35-7.45) ABG pH (Temp Correct) (7.35-7.45) ABG pCO2 (35-46) mmHg ABG pCO2 (Temp Corrct (35-46) mmHg ABG pO2 (80-95) mmHg POC ABG pO2 at Pt Temp ABG HCO3 (19-24) mmol/L POC ABG O2 Sat 93.0 (90-95) % ABG O2 Saturation (90-95) % ABG Base Excess (-9-1.8) mEq/L [place] Test Oxygen Given O2 Delivery Device POC O2 Rate POC FiO2 % IPAP POC Sodium (135-144) mmol/L Sodium (136-145) mmol/L POC Potassium (3.3-5.0) mmol/L Potassium Chloride (98-107) mmol/L Carbon Dioxide (21-32) mmol/L Anion Gap (3-11) BUN (6-23) mg/dl Creatinine (0.6-1.4) mg/dl Est Cr Clr Drug Dosing ml/min Est GFR ( Amer) ml/min Est GFR (Non-Af Amer) ml/min BUN/Creatinine Ratio (10-20) Glucose (70-99(Fasting)) mg/dl POC Glucose 195 H (70-99) mg/dl Estimat Average Glucose mg/dl Hemoglobin A1c (4.5-5.6) % Lactate (0.4-2.0) mmol/L Calcium (8.5-10.1) mg/dl Magnesium (1.7-2.4) mg/dl Total Bilirubin (0.2-1.0) mg/dl AST ALT (7-52) U/L Alkaline Phosphatase (34-104) U/L Troponin I High Sens (0-20) pg/ml Total Protein (6.0-8.3) gm/dl Albumin (3.4-5.0) gm/dl Globulin (2.5-4.0) gm/dl Albumin/Globulin Ratio (0.9-2) Procalcitonin (0-0.5) ng/ml Urine Color Urine Appearance (Clear) Urine pH (4.5-7.5) Ur Specific [place] (1.000-1.030) Urine Protein (Negative) Urine Glucose (UA) (Negative) Urine Ketones (Negative) Urine Blood (Negative) Urine Nitrite (Negative) Urine Bilirubin (Negative) Urine Urobilinogen (Negative) Ur Leukocyte Esterase (Negative) Urine WBC (Auto) (0-5) /hpf Urine RBC (Auto) (0-4) /hpf U Hyaline Cast (Auto) (0-5) /lpf U Epithel Cells (Auto) (0-5) /lpf Urine Bacteria (Auto) (Negative) Urine Yeast Nasal Screen MRSA (PCR) Negative (Negative) SARS-CoV-2 (PCR) (Negative) Influenza Type A (PCR) (Neg) Influenza Type B (PCR) (Neg) Urine Legionella Ag RSV (RT-PCR) (Neg) Beta-(1,3)-D-Glucan B-(1,3)-D-Glucan Intrp 11/16/22 11/16/22 11/16/22 Range/Units 03:52 03:50 03:50 WBC (4.8-10.8) K/ul RBC (4.63-6.08) M/uL Hgb (14.0-18.0) g/dl POC Hgb (14.0-18.0) g/dl Hct (40.1-51.0) % POC Hct (42-52) % MCV (80.0-100.0) fL MCH (25.0-34.0) pg MCHC (32.0-36.0) g/dL RDW Std Deviation (36.4-46.3) fL RDW Coeff of Omega (11.5-14.5) % Plt Count (130-400) K/uL MPV (9.4-12.4) fL Immature Gran % (Auto) % Neut % (Auto) % Lymph % (Auto) % [place] % (Auto) % Eos % (Auto) % Baso % (Auto) % Neut # (Auto) (1.4-6.5) K/uL Lymph # (Auto) (1.2-3.4) K/uL [place] # (Auto) (0.24-0.82) K/uL Eos # (Auto) (0-0.50) K/uL Baso # (Auto) (0-0.2) K/uL Immature Gran # (Auto) (0.00-0.02) K/uL Toxic Vacuolation Sample Site POC pH (7.35-7.45) POC pCO2 (35-46) mmHg POC pO2 (80-95) mmHg POC HCO3 (19-24) gladys/L POC Total CO2 (24-31) mmol/L POC Base Excess (-9-1.8) gladys/L ABG pH (7.35-7.45) ABG pH (Temp Correct) (7.35-7.45) ABG pCO2 (35-46) mmHg ABG pCO2 (Temp Corrct (35-46) mmHg ABG pO2 (80-95) mmHg POC ABG pO2 at Pt Temp ABG HCO3 (19-24) mmol/L POC ABG O2 Sat (90-95) % ABG O2 Saturation (90-95) % ABG Base Excess (-9-1.8) mEq/L [place] Test Oxygen Given O2 Delivery Device POC O2 Rate POC FiO2 % IPAP POC Sodium (135-144) mmol/L Sodium (136-145) mmol/L POC Potassium (3.3-5.0) mmol/L Potassium 4.5 Chloride (98-107) mmol/L Carbon Dioxide (21-32) mmol/L Anion Gap (3-11) BUN (6-23) mg/dl Creatinine (0.6-1.4) mg/dl Est Cr Clr Drug Dosing ml/min Est GFR ( Amer) ml/min Est GFR (Non-Af Amer) ml/min BUN/Creatinine Ratio (10-20) Glucose (70-99(Fasting)) mg/dl POC Glucose (70-99) mg/dl Estimat Average Glucose mg/dl Hemoglobin A1c (4.5-5.6) % Lactate 1.9 (0.4-2.0) mmol/L Calcium (8.5-10.1) mg/dl Magnesium (1.7-2.4) mg/dl Total Bilirubin (0.2-1.0) mg/dl AST 29 ALT (7-52) U/L Alkaline Phosphatase (34-104) U/L Troponin I High Sens (0-20) pg/ml Total Protein (6.0-8.3) gm/dl Albumin (3.4-5.0) gm/dl Globulin (2.5-4.0) gm/dl Albumin/Globulin Ratio (0.9-2) Procalcitonin (0-0.5) ng/ml Urine Color Urine Appearance (Clear) Urine pH (4.5-7.5) Ur Specific [place] (1.000-1.030) Urine Protein (Negative) Urine Glucose (UA) (Negative) Urine Ketones (Negative) Urine Blood (Negative) Urine Nitrite (Negative) Urine Bilirubin (Negative) Urine Urobilinogen (Negative) Ur Leukocyte Esterase (Negative) Urine WBC (Auto) (0-5) /hpf Urine RBC (Auto) (0-4) /hpf U Hyaline Cast (Auto) (0-5) /lpf U Epithel Cells (Auto) (0-5) /lpf Urine Bacteria (Auto) (Negative) Urine Yeast Nasal Screen MRSA (PCR) (Negative) SARS-CoV-2 (PCR) (Negative) Influenza Type A (PCR) (Neg) Influenza Type B (PCR) (Neg) Urine Legionella Ag RSV (RT-PCR) (Neg) Beta-(1,3)-D-Glucan Pending B-(1,3)-D-Glucan Intrp Pending 11/16/22 11/16/22 11/16/22 Range/Units 02:45 02:45 02:45 WBC (4.8-10.8) K/ul RBC (4.63-6.08) M/uL Hgb (14.0-18.0) g/dl POC Hgb (14.0-18.0) g/dl Hct (40.1-51.0) % POC Hct (42-52) % MCV (80.0-100.0) fL MCH (25.0-34.0) pg MCHC (32.0-36.0) g/dL RDW Std Deviation (36.4-46.3) fL RDW Coeff of Omega (11.5-14.5) % Plt Count (130-400) K/uL MPV (9.4-12.4) fL Immature Gran % (Auto) % Neut % (Auto) % Lymph % (Auto) % [place] % (Auto) % Eos % (Auto) % Baso % (Auto) % Neut # (Auto) (1.4-6.5) K/uL Lymph # (Auto) (1.2-3.4) K/uL [place] # (Auto) (0.24-0.82) K/uL Eos # (Auto) (0-0.50) K/uL Baso # (Auto) (0-0.2) K/uL Immature Gran # (Auto) (0.00-0.02) K/uL Toxic Vacuolation Sample Site POC pH (7.35-7.45) POC pCO2 (35-46) mmHg POC pO2 (80-95) mmHg POC HCO3 (19-24) gladys/L POC Total CO2 (24-31) mmol/L POC Base Excess (-9-1.8) gladys/L ABG pH (7.35-7.45) ABG pH (Temp Correct) (7.35-7.45) ABG pCO2 (35-46) mmHg ABG pCO2 (Temp Corrct (35-46) mmHg ABG pO2 (80-95) mmHg POC ABG pO2 at Pt Temp ABG HCO3 (19-24) mmol/L POC ABG O2 Sat (90-95) % ABG O2 Saturation (90-95) % ABG Base Excess (-9-1.8) mEq/L [place] Test Oxygen Given O2 Delivery Device POC O2 Rate POC FiO2 % IPAP POC Sodium (135-144) mmol/L Sodium 133 L (136-145) mmol/L POC Potassium (3.3-5.0) mmol/L Potassium TNP Chloride 98 (98-107) mmol/L Carbon Dioxide 24 (21-32) mmol/L Anion Gap 11 (3-11) BUN 26 H (6-23) mg/dl Creatinine 1.14 (0.6-1.4) mg/dl Est Cr Clr Drug Dosing 70.3 ml/min Est GFR ( Amer) 82.3 ml/min Est GFR (Non-Af Amer) 71.0 ml/min BUN/Creatinine Ratio 22.8 H (10-20) Glucose 150 H (70-99(Fasting)) mg/dl POC Glucose (70-99) mg/dl Estimat Average Glucose 114 mg/dl Hemoglobin A1c 5.6 (4.5-5.6) % Lactate (0.4-2.0) mmol/L Calcium 7.9 L (8.5-10.1) mg/dl Magnesium 1.7 (1.7-2.4) mg/dl Total Bilirubin 0.9 (0.2-1.0) mg/dl AST TNP ALT 23 (7-52) U/L Alkaline Phosphatase 53 (34-104) U/L Troponin I High Sens 12.9 (0-20) pg/ml Total Protein 7.2 (6.0-8.3) gm/dl Albumin 3.8 (3.4-5.0) gm/dl Globulin 3.4 (2.5-4.0) gm/dl Albumin/Globulin Ratio 1.1 (0.9-2) Procalcitonin 28.33 H (0-0.5) ng/ml Urine Color Urine Appearance (Clear) Urine pH (4.5-7.5) Ur Specific [place] (1.000-1.030) Urine Protein (Negative) Urine Glucose (UA) (Negative) Urine Ketones (Negative) Urine Blood (Negative) Urine Nitrite (Negative) Urine Bilirubin (Negative) Urine Urobilinogen (Negative) Ur Leukocyte Esterase (Negative) Urine WBC (Auto) (0-5) /hpf Urine RBC (Auto) (0-4) /hpf U Hyaline Cast (Auto) (0-5) /lpf U Epithel Cells (Auto) (0-5) /lpf Urine Bacteria (Auto) (Negative) Urine Yeast Nasal Screen MRSA (PCR) (Negative) SARS-CoV-2 (PCR) (Negative) Influenza Type A (PCR) (Neg) Influenza Type B (PCR) (Neg) Urine Legionella Ag RSV (RT-PCR) (Neg) Beta-(1,3)-D-Glucan B-(1,3)-D-Glucan Intrp 11/16/22 11/16/22 Range/Units 02:45 02:05 WBC 6.71 (4.8-10.8) K/ul RBC 4.79 (4.63-6.08) M/uL Hgb 14.6 (14.0-18.0) g/dl POC Hgb (14.0-18.0) g/dl Hct 41.7 (40.1-51.0) % POC Hct (42-52) % MCV 87.1 (80.0-100.0) fL MCH 30.5 (25.0-34.0) pg MCHC 35.0 (32.0-36.0) g/dL RDW Std Deviation 39.5 (36.4-46.3) fL RDW Coeff of Omega 12.4 (11.5-14.5) % Plt Count 159 (130-400) K/uL MPV 10.7 (9.4-12.4) fL Immature Gran % (Auto) 0.4 % Neut % (Auto) 85.0 % Lymph % (Auto) 3.7 % [place] % (Auto) 10.3 % Eos % (Auto) 0.0 % Baso % (Auto) 0.6 % Neut # (Auto) 5.70 (1.4-6.5) K/uL Lymph # (Auto) 0.25 L (1.2-3.4) K/uL [place] # (Auto) 0.69 (0.24-0.82) K/uL Eos # (Auto) 0.00 (0-0.50) K/uL Baso # (Auto) 0.04 (0-0.2) K/uL Immature Gran # (Auto) 0.03 H (0.00-0.02) K/uL Toxic Vacuolation 1+ Sample Site POC pH (7.35-7.45) POC pCO2 (35-46) mmHg POC pO2 (80-95) mmHg POC HCO3 (19-24) gladys/L POC Total CO2 (24-31) mmol/L POC Base Excess (-9-1.8) gladys/L ABG pH (7.35-7.45) ABG pH (Temp Correct) (7.35-7.45) ABG pCO2 (35-46) mmHg ABG pCO2 (Temp Corrct (35-46) mmHg ABG pO2 (80-95) mmHg POC ABG pO2 at Pt Temp ABG HCO3 (19-24) mmol/L POC ABG O2 Sat (90-95) % ABG O2 Saturation (90-95) % ABG Base Excess (-9-1.8) mEq/L [place] Test Oxygen Given O2 Delivery Device POC O2 Rate POC FiO2 % IPAP POC Sodium (135-144) mmol/L Sodium (136-145) mmol/L POC Potassium (3.3-5.0) mmol/L Potassium Chloride (98-107) mmol/L Carbon Dioxide (21-32) mmol/L Anion Gap (3-11) BUN (6-23) mg/dl Creatinine (0.6-1.4) mg/dl Est Cr Clr Drug Dosing ml/min Est GFR ( Amer) ml/min Est GFR (Non-Af Amer) ml/min BUN/Creatinine Ratio (10-20) Glucose (70-99(Fasting)) mg/dl POC Glucose (70-99) mg/dl Estimat Average Glucose mg/dl Hemoglobin A1c (4.5-5.6) % Lactate (0.4-2.0) mmol/L Calcium (8.5-10.1) mg/dl Magnesium (1.7-2.4) mg/dl Total Bilirubin (0.2-1.0) mg/dl AST ALT (7-52) U/L Alkaline Phosphatase (34-104) U/L Troponin I High Sens (0-20) pg/ml Total Protein (6.0-8.3) gm/dl Albumin (3.4-5.0) gm/dl Globulin (2.5-4.0) gm/dl Albumin/Globulin Ratio (0.9-2) Procalcitonin (0-0.5) ng/ml Urine Color Urine Appearance (Clear) Urine pH (4.5-7.5) Ur Specific [place] (1.000-1.030) Urine Protein (Negative) Urine Glucose (UA) (Negative) Urine Ketones (Negative) Urine Blood (Negative) Urine Nitrite (Negative) Urine Bilirubin (Negative) Urine Urobilinogen (Negative) Ur Leukocyte Esterase (Negative) Urine WBC (Auto) (0-5) /hpf Urine RBC (Auto) (0-4) /hpf U Hyaline Cast (Auto) (0-5) /lpf U Epithel Cells (Auto) (0-5) /lpf Urine Bacteria (Auto) (Negative) Urine Yeast Nasal Screen MRSA (PCR) (Negative) SARS-CoV-2 (PCR) NEGATIVE (Negative) Influenza Type A (PCR) Positive A* (Neg) Influenza Type B (PCR) Negative (Neg) Urine Legionella Ag RSV (RT-PCR) Negative (Neg) Beta-(1,3)-D-Glucan B-(1,3)-D-Glucan Intrp Diagnostic Findings Chest X-Ray 11/16/22 02:09 XR chest 1V portable CLINICAL HISTORY: Shortness of breath. Chest pain. COMPARISON STUDY: Chest CT February 01, 2016. FINDINGS: Dense left lower lobe consolidation is noted. Additional patchy airspace opacities throughout the lungs are present. Cardiomediastinal silhouette is normal. There is no pneumothorax or pleural effusion. There is no evidence for pulmonary edema. IMPRESSION: Dense left lower lobe consolidation with additional patchy airspace opacities throughout the lungs. The findings favor multifocal pneumonia or aspiration pneumonitis. Radiographic follow-up to ensure resolution is recommended. Chest CT 11/16/22 03:40 CT SCAN OF THE CHEST WITHOUT IV CONTRAST CLINICAL HISTORY: Dyspnea. Pneumonia. COMPARISON STUDY: Chest x-ray dated 11/16/2022. Chest CT dated 02/01/2016. TECHNIQUE: CT scan of the thorax was performed from the thoracic inlet to the upper abdomen. Images are reviewed in the axial, sagittal, and coronal planes. IV contrast was not administered for this examination as per the referring clinician. A dose lowering technique was utilized adhering to the principles of ALARA. The examination is degraded by motion artifact, as well as by streak artifact from the arms which could not be elevated above the chest. CT DOSE: 299.23 mGy.cm FINDINGS: Thyroid: Imaged portions of the thyroid gland are normal in size and attenuation. Thoracic aorta: The thoracic aorta is normal in caliber and demonstrates standard 3-vessel arch anatomy. Heart: The heart is normal in size and without pericardial effusion. There are scattered coronary artery calcifications. Lungs and pleural spaces: There is dense airspace consolidation of the left lung base. Milder patchy airspace consolidation is seen throughout both lungs, left greater than right. There is a small left pleural effusion. The trachea and central airways appear clear. Mediastinum: There are mildly enlarged mediastinal lymph nodes. A subcarinal node measures 14 mm short axis. AP window nodes measure up to 11 mm in short axis. Ana: Not well assessed without IV contrast. Axillae: There is no axillary lymphadenopathy. Upper abdomen: The adrenal glands are mildly thickened and there is surrounding infiltration. Partially visualized upper abdominal viscera is within normal limits. Skeletal structures: No lytic or blastic bony lesions are seen. Advanced arthritic change is seen in the shoulders. IMPRESSION: 1. There is evidence of multifocal pneumonia, most confluent at the left lung base. Radiographic follow-up to resolution is recommended. 2. Small left pleural effusion. 3. Mildly enlarged mediastinal lymph nodes are likely reactive. 4. The adrenal glands appear mildly thickened and there is surrounding inflammation. This is of indeterminate etiology and significance. Clinical correlation will be essential. 5. Additional findings as above. Resident Activity Tracking Resident Involvement: Resident Care Provided Care Provided: [facility]
--- NOTE | 2022-11-16 07:34 | XRay Report ---
XR chest 1V portable CLINICAL HISTORY: Shortness of breath. Chest pain. COMPARISON STUDY: Chest CT February 01, 2016. FINDINGS: Dense left lower lobe consolidation is noted. Additional patchy airspace opacities througho ut the lungs are present. Cardiomediastinal silhouette is normal. There is no pneumothorax or pleural effusion. There is no evidence for pulmonary edema. IMPRESSION: Dense left lower lobe consolidation with additional patchy airspace opacities throughout the lungs. The findings favor multifocal pneumonia or aspiration pneumonitis. Radiographic follow-up to ensure resolution is recommended. ACT 112: Negative or not required by law. Electronically signed by: Jf Thomas M.D. 11/16/2022 7:32 AM
--- NOTE | 2022-11-16 07:50 | CT Scan Report ---
CT SCAN OF THE CHEST WITHOUT IV CONTRAST CLINICAL HISTORY: Dyspnea. Pneumonia. COMPARISON STUDY: Chest x-ray dated 11/16/2022. Chest CT dated 02/01/2016. TECHNIQUE: CT scan of the thorax was performed from the thoracic inlet to the upper abdomen. Images are reviewed in the axial, sagittal, and coronal planes. IV contrast was not administered for this ex amination as per the referring clinician. A dose lowering technique was utilized adhering to the scott ernandez of LAURE. The examination is degraded by motion artifact, as well as by streak artifact from the arms which could not be elevated above the chest. CT DOSE: 299.23 mGy.cm FINDINGS: Thyroid: Imaged portions of the thyroid gland are normal in size and attenuation. Thoracic aorta: The thoracic aorta is normal in caliber and demonstrates standard 3-vessel arch anato my. Heart: The heart is normal in size and without pericardial effusion. There are scattered coronary art billie calcifications. Lungs and pleural spaces: There is dense airspace consolidation of the left lung base. Milder patchy airspace consolidation is seen throughout both lungs, left greater than right. There is a small left pleural effusion. The trachea and central airways appear clear. Mediastinum: There are mildly enlarged mediastinal lymph nodes. A subcarinal node measures 14 mm shor t axis. AP window nodes measure up to 11 mm in short axis. Ana: Not well assessed without IV contrast. Axillae: There is no axillary lymphadenopathy. Upper abdomen: The adrenal glands are mildly thickened and there is surrounding infiltration. Partial ly visualized upper abdominal viscera is within normal limits. Skeletal structures: No lytic or blastic bony lesions are seen. Advanced arthritic change is seen in the shoulders. IMPRESSION: 1. There is evidence of multifocal pneumonia, most confluent at the left lung base. Radiographic foll ow-up to resolution is recommended. 2. Small left pleural effusion. 3. Mildly enlarged mediastinal lymph nodes are likely reactive. 4. The adrenal glands appear mildly thickened and there is surrounding inflammation. This is of indet erminate etiology and significance. Clinical correlation will be essential. 5. Additional findings as above. ACT 112: Negative or not required by law. Electronically signed by: Anurag Weston M.D. 11/16/2022 7:49 AM
[2022-11-16] MEDS: INSULIN ASPART PER UNIT SC SCH ×4 (08:52→20:10)
[2022-11-16] MEDS: OSELTAMIVIR PHOSPHATE 75 MG CAP PO SCH ×2 (09:05→19:58)
[2022-11-16] MEDS: FLUTICASONE/VILANTEROL 200/25MCG 14 PUFFS/INHALER INH SCH (09:06)
[2022-11-16] MEDS: ENOXAPARIN INJ 40 MG/0.4 ML SYR SQ SCH (09:06)
[2022-11-16] MEDS: guaiFENesin 600 MG TABCR PO SCH ×2 (09:06→19:58)
[2022-11-16 10:02] LABS: Estimated Average Glucose 114 mg/dl; Hemoglobin A1C 5.6 % (4.5-5.6)
[2022-11-16] MEDS: methylPREDNISolone 40 MG in SYRINGE 0 ML IV SCH ×3 (10:45→21:17)
[2022-11-16 11:27] LABS: Appearance Urine Clear (Clear); Bacteria Urine Automated Negative (Negative); Bilirubin Urine Negative (Negative); Blood Urine Trace (Negative); Color Urine Yellow; Glucose Urine UA Trace (Negative); Ketones Urine Negative (Negative); Leukocyte Esterase Urine Negative (Negative); Nitrite Urine Negative (Negative); Protein Urine 1+ (Negative); RBC Urine Automated 0-4 /hpf (0-4); Specific Gravity Urine 1.019 (1.000-1.030); Urobilinogen Urine Negative (Negative); pH Urine 5.5 (4.5-7.5)
--- NOTE | 2022-11-16 11:44 | Pharmacy Report ---
Pharmacy PK ABX Note - Date of Service November 16, 2022 - Assessment and Plan Assessment 56 year old M receiving vancomycin, cefepime, and azithromycin for treatment of pulmonary infection. Blood cultures pending, MRSA nasal (-), Influenza A (+). Procal - 28. Renal function stable. Day # 1 of antimicrobial therapy. Plan Vancomycin * Loading dose: 1500mg IV X 1 * Maintenance dose: 1500 mg IV every 24 hours to begin ~ noon * Regimen is predicted to achieve target AUC/CONNOR of 400-600 mg/L.hr * Level to be ordered around steady state (or sooner if clinically indicated) if vanc continues. Pharmacy will continue to follow and will adjust dose/frequency as necessary. Thank you. Pharmacy has transitioned to AUC monitoring for vancomycin. AUC/CONNOR is the preferred PK/PD target and is associated with decreased risk of nephrotoxicity compared to traditional trough targets.
[2022-11-16 11:46] LABS: Base Excess ABG -0.3 mEq/L (-9-1.8); HCO3 ABG 24 mmol/L (19-24); Oxygen Saturation ABG 99.4 % (90-95); PCO2 ABG 38 mmHg (35-46); PO2 ABG 110 mmHg (80-95); pH ABG 7.41 (7.35-7.45)
[2022-11-16 11:47] LABS: Allen Test Pos (Pos)
[2022-11-16] MEDS ORDERED: VANCOMYCIN HCL 1,500 MG in SODIUM CHLORIDE 0.9% 500 ML IV SCH (12:00)
[2022-11-16 15:50] LABS: Base Excess ABG 2.3 mEq/L (-9-1.8); HCO3 ABG 27 mmol/L (19-24); PCO2 ABG 39 mmHg (35-46); PO2 ABG 90 mmHg (80-95); pH ABG 7.44 (7.35-7.45)
[2022-11-16 15:54] LABS: Allen Test Pos (Pos)
[2022-11-16] MEDS ORDERED: SIMETHICONE 80 MG CHEW PO PRN (16:14)
[2022-11-16] MEDS ORDERED: POLYETHYLENE (MIRALAX) 17 GM PACK PO ONE (16:14)
[2022-11-16] MEDS: amLODIPine BESYLATE 5 MG TAB PO SCH ×2 (19:57→20:32)
[2022-11-16] MEDS: POLYETHYLENE (MIRALAX) 17 GM PACK PO SCH (19:59)
--- NOTE | 2022-11-17 01:11 | Billing Data ---
Date of Service November 17, 2022 Coding Level of Care Code 40449 INT INP/OBS CARE
[2022-11-17] MEDS: LEVALBUTEROL HCL 0.63 MG/3 ML NEB NEB SCH ×6 (03:52→23:06)
[2022-11-17] MEDS: AZITHROMYCIN 500 MG in DEXTROSE 5% 250 ML IV SCH (04:27)
[2022-11-17] MEDS: CEFEPIME 2,000 MG in SYRINGE 0 ML IV SCH (04:27)
[2022-11-17] MEDS: methylPREDNISolone 40 MG in SYRINGE 0 ML IV SCH ×2 (04:28→09:14)
[2022-11-17] MEDS: NORMOSOL-R 1,000 ML IV SCH ×3 (04:28→20:47)
--- NOTE | 2022-11-17 05:08 | Electrocardiogram Report ---
Test Reason : Blood Pressure : / mmHG Vent. Rate : 080 BPM Atrial Rate : 080 BPM P-R Int : 138 ms QRS Dur : 084 ms QT Int : 348 ms P-R-T Axes : 071 007 040 degrees QTc Int : 401 ms Poor data quality, interpretation may be adversely affected Normal sinus rhythm Normal ECG When compared with ECG of 28-JAN-2013 20:52, Vent. rate has increased BY 31 BPM Confirmed by William Corrales ([id number]) on 11/17/2022 5:07:59 AM Referred By: REFERRED SELF Confirmed By:William Corrales
[2022-11-17 06:44] LABS: Hematocrit (blood only) 32.2 % (40.1-51.0); Hemoglobin 10.9 g/dl (14.0-18.0); Mean Corpuscular Hemoglobin 30.2 pg (25.0-34.0); Mean Corpuscular Hgb Conc 33.9 g/dL (32.0-36.0); Mean Corpuscular Volume 89.2 fL (80.0-100.0); Platelet Count 145 K/uL (130-400); RDW Coefficient of Variation 12.7 % (11.5-14.5); RDW Standard Deviation 41.6 fL (36.4-46.3); Red Blood Count 3.61 M/uL (4.63-6.08); White Blood Count 6.51 K/ul (4.8-10.8)
[2022-11-17 06:51] LABS: Albumin Level 2.9 gm/dl (3.4-5.0); BUN Creatinine Ratio 34.4 (10-20); Bilirubin,Total 0.4 mg/dl (0.2-1.0); Calcium 7.2 mg/dl (8.5-10.1); Creatinine Clr Calc Pharmacy 90.6 ml/min; Est GFR (African American) 109.5 ml/min; Est GFR (Non-African American) 94.5 ml/min; Potassium 4.1 mmol/L (3.5-5.1); Total Protein 5.9 gm/dl (6.0-8.3)
--- NOTE | 2022-11-17 07:23 | Hospitalist Progress Note ---
Date of Service November 17, 2022 Assessment & Plan (1) Acute respiratory failure with hypoxia and hypercapnia: Plan: Hawk Nguyễn is a 56 y/o male with PMHx significant for moderate persistent asthma (on Symbicort/Fasenra, f/w Pulm/Allergy, FEV1 55% in 01/2022) and HTN who presented to [facility] ED on 11/16 for acute respiratory illness with worsening shortness of breath found to be hypoxic 83% and hypercapnic in the setting of flu A with probable superimposed bacterial pneumonia admitted for respiratory support with BiPAP, antibiotics, and observation now clinically improving and stable for de-escalation of care. #Influenza A w/superimposed bacterial pneumonia in the setting of moderate persistent asthma exacerbation #Acute respiratory failure w/hypoxia and hypercapnia - improving #Acute non-compensated respiratory acidosis - resolved CXR with multifocal/bibasilar opacities (L>R). Influenza A positive with likely a superimposed bacterial pneumonia (multifocal/bibasilar, L>R). Labs significant for procalcitonin 28.33, significant lymphopenia 0.25, Na 133, Mg 1.7. Otherwise CBC/CMP/hsTroponin WNL. Patient is on Fasenra and is thus immunocompromised and susceptible to more severe/atypical infections. Also with asthma exacerbation 2/2 to flu and superimposed PNA. Broad abx coverage was started as patient was clinically ill - cefipime, vanc, azithro. Patient required respiratory support with BiPAP due to respiratory fatigue and hypoventilation. ABG revealed acute non-compensated respiratory acidosis pH 7.2, pCO2 69, pHCO3 27 which resolved after initiation of BiPAP. Patient now satting 90-92 on RA. Clinically improving stable to deescalate care --> transition to prednisone 40 mg, d/c vanc, switch to ceftriaxone, continue azithro. [] Duonebs - Xopenex Q4 LAINE Q2H PRN, Mag sulfate 2gm IV, and SoluMedrol 40 mg IV Q6H - transition to prednisone 40 mg [] Tamiflu 75 mg PO BID x5 - final dose 11/21 [] narrow abx coverage to ceftriaxone and azithromycin - if patient clinically declines or cultures result will broaden as appropriate [] follow blood cultures - NGTD x24 hr [] check [id number], urine legionella, MRSA nares - negative [] AM CXR #Psychiatric concerns Patient has noticed that he sees "gloomy things" when he closes his eyes. Able to distinguish between this and reality. Patient does have a significant psychiatric history with previous homicidal ideations, anxiety, and depression. Has improved since establishing a support system at his restorationism and with [facility]. Will have hl7 interface developer see him. Could be a component delirium as patient was acutely ill. Recommend delirium precautions - minimize interruptions, awake during day, sleep at night, avoid benzos. [] continue to monitor #Moderate persistent asthma with possible eosinophilic component Patient on Symbicort and Fasenra for maintenance and Albuterol for acute use. At baseline he rarely needs acute therapy and takes his maintenance meds as prescribed. Patient is a never smoker. Flu vaccinated. UTD on covid vaccines. #Anemia (unknown etiology) Hb 14.6 on admit. Now 10.9. Patient initially required aggressive fluid resuscitation. Could be dilutional in nature vs hemolytic. Continue to trend. [] AM CBC #HTN Continue home amlodipine #Constipation Patient has a long standing history of constipation. Likely worsened in the setting of decreased PO intake and BiPAP use. Miralax 34 gm BID. FEN/GI: regular diet, Normosol-R @125cc/hr DVT Prophylaxis: Lovenox SQ Code Status: full code Disposition: med/surg Family Update: sister updated 11/17/22 at bedside (2) Pneumonia: (3) Asthma exacerbation: (4) Influenza A: (5) Hypertension: Admission and Anticipated Discharge Date Admission Date: November 16, 2022 Supervising Physician Co-Signing Physician Notes I personally examined the patient and verified all peterson points of history and exam, discussed case, and agree with decision making with Dr Do Feeling better breathing better. Sister present. Answered all questions the best my ability. vitals ntoed nad heent nc at mmm lungs overall clear somewhat diminished base left but markedly clear without much of any wheezing. flu/pneumonia, acute hypercapnic > hypoxic respiratory failure - doing better, continue abx (narrow), steroids (wean), supportive care. abd bloat - likely air/gas in GI from bipap and chronic constipation - off bipap, trial simethicone, miralax, time DVT proph - lovenox Stable for transfer to medical, improving nicely. Subjective Patient notes that he is feeling improved. His breathing is less labored. No f/c/CP. Overall improving. Review of Systems Review of Systems: See HPI Physical Exam Physical Exam: General: A&Ox3. NAD. Cooperative. Anxious HEENT: Atraumatic, normocephalic. Pulm: CTABL. Mildly labored with quickened respiration on RA. No respiratory distress. Cardiac: RRR, -mrg. Radial pulses intact and symmetrical. No LE edema. Abdominal: soft, non-tender, Skin: warm, no rashes or bruising Results & Data Results & Data ([facility]) Vital Signs (Past 12 Hours) Vital Signs Temp Pulse Pulse Resp BP Pulse Ox O2 Del Method 11/17/22 07:03 51 L 16 96 Nasal Cannula 11/17/22 06:00 11/17/22 03:54 50 L 18 96 Nasal Cannula 11/17/22 02:55 37.1 C 52 L 20 138/87 99 Nasal Cannula 11/17/22 00:00 52 L 11/16/22 23:03 36.8 C 57 L 18 116/74 96 Nasal Cannula 11/16/22 23:22 52 L 20 96 Nasal Cannula 11/16/22 20:37 72 23 97 Nasal Cannula 11/16/22 19:58 36.9 C 61 20 116/72 96 Nasal Cannula 11/16/22 20:42 Nasal Cannula O2 Del Method O2 Flow Rate O2 Flow Rate 11/17/22 07:03 4 11/17/22 06:00 Nasal Cannula 4 11/17/22 03:54 4 11/17/22 02:55 8.0 11/17/22 00:00 11/16/22 23:03 4.0 11/16/22 23:22 4 11/16/22 20:37 6 11/16/22 19:58 4.0 11/16/22 20:42 4 Laboratory Results 11/17/22 11/17/22 11/17/22 Range/Units 07:20 06:06 06:06 WBC 6.51 (4.8-10.8) K/ul RBC 3.61 L (4.63-6.08) M/uL Hgb 10.9 L D (14.0-18.0) g/dl Hct 32.2 L (40.1-51.0) % MCV 89.2 (80.0-100.0) fL MCH 30.2 (25.0-34.0) pg MCHC 33.9 (32.0-36.0) g/dL RDW Std Deviation 41.6 (36.4-46.3) fL RDW Coeff of Omega 12.7 (11.5-14.5) % Plt Count 145 (130-400) K/uL MPV 11.0 (9.4-12.4) fL ABG pH (7.35-7.45) ABG pCO2 (35-46) mmHg ABG pO2 (80-95) mmHg ABG HCO3 (19-24) mmol/L ABG O2 Saturation (90-95) % ABG Base Excess (-9-1.8) mEq/L [place]ane Test (Pos) Oxygen Given Sodium 138 (136-145) mmol/L Potassium 4.1 (3.5-5.1) mmol/L Chloride 105 (98-107) mmol/L Carbon Dioxide 26 (21-32) mmol/L Anion Gap 7 (3-11) BUN 31 H (6-23) mg/dl Creatinine 0.90 (0.6-1.4) mg/dl Est Cr Clr Drug Dosing 90.6 ml/min Est GFR ( Amer) 109.5 ml/min Est GFR (Non-Af Amer) 94.5 ml/min BUN/Creatinine Ratio 34.4 H (10-20) Glucose 218 H (70-99(Fasting)) mg/dl POC Glucose 230 H (70-99) mg/dl Estimat Average Glucose mg/dl Hemoglobin A1c (4.5-5.6) % Calcium 7.2 L (8.5-10.1) mg/dl Total Bilirubin 0.4 D (0.2-1.0) mg/dl AST 30 (13-39) U/L ALT 27 (7-52) U/L Alkaline Phosphatase 44 (34-104) U/L Total Protein 5.9 L (6.0-8.3) gm/dl Albumin 2.9 L (3.4-5.0) gm/dl Globulin 3.0 (2.5-4.0) gm/dl Albumin/Globulin Ratio 1.0 (0.9-2) Urine Color Urine Appearance (Clear) Urine pH (4.5-7.5) Ur Specific [place] (1.000-1.030) Urine Protein (Negative) Urine Glucose (UA) (Negative) Urine Ketones (Negative) Urine Blood (Negative) Urine Nitrite (Negative) Urine Bilirubin (Negative) Urine Urobilinogen (Negative) Ur Leukocyte Esterase (Negative) Urine WBC (Auto) (0-5) /hpf Urine RBC (Auto) (0-4) /hpf U Hyaline Cast (Auto) (0-5) /lpf U Epithel Cells (Auto) (0-5) /lpf Urine Bacteria (Auto) (Negative) Urine Yeast Nasal Screen MRSA (PCR) (Negative) Urine Legionella Ag 11/16/22 11/16/22 11/16/22 Range/Units 20:04 16:35 15:16 WBC (4.8-10.8) K/ul RBC (4.63-6.08) M/uL Hgb (14.0-18.0) g/dl Hct (40.1-51.0) % MCV (80.0-100.0) fL MCH (25.0-34.0) pg MCHC (32.0-36.0) g/dL RDW Std Deviation (36.4-46.3) fL RDW Coeff of Omega (11.5-14.5) % Plt Count (130-400) K/uL MPV (9.4-12.4) fL ABG pH 7.44 (7.35-7.45) ABG pCO2 39 (35-46) mmHg ABG pO2 90 (80-95) mmHg ABG HCO3 27 H (19-24) mmol/L ABG O2 Saturation 98.0 H (90-95) % ABG Base Excess 2.3 H (-9-1.8) mEq/L Duane Test Pos (Pos) Oxygen Given 5L Sodium (136-145) mmol/L Potassium (3.5-5.1) mmol/L Chloride (98-107) mmol/L Carbon Dioxide (21-32) mmol/L Anion Gap (3-11) BUN (6-23) mg/dl Creatinine (0.6-1.4) mg/dl Est Cr Clr Drug Dosing ml/min Est GFR ( Amer) ml/min Est GFR (Non-Af Amer) ml/min BUN/Creatinine Ratio (10-20) Glucose (70-99(Fasting)) mg/dl POC Glucose 179 H 183 H (70-99) mg/dl Estimat Average Glucose mg/dl Hemoglobin A1c (4.5-5.6) % Calcium (8.5-10.1) mg/dl Total Bilirubin (0.2-1.0) mg/dl AST (13-39) U/L ALT (7-52) U/L Alkaline Phosphatase (34-104) U/L Total Protein (6.0-8.3) gm/dl Albumin (3.4-5.0) gm/dl Globulin (2.5-4.0) gm/dl Albumin/Globulin Ratio (0.9-2) Urine Color Urine Appearance (Clear) Urine pH (4.5-7.5) Ur Specific [place] (1.000-1.030) Urine Protein (Negative) Urine Glucose (UA) (Negative) Urine Ketones (Negative) Urine Blood (Negative) Urine Nitrite (Negative) Urine Bilirubin (Negative) Urine Urobilinogen (Negative) Ur Leukocyte Esterase (Negative) Urine WBC (Auto) (0-5) /hpf Urine RBC (Auto) (0-4) /hpf U Hyaline Cast (Auto) (0-5) /lpf U Epithel Cells (Auto) (0-5) /lpf Urine Bacteria (Auto) (Negative) Urine Yeast Nasal Screen MRSA (PCR) (Negative) Urine Legionella Ag 11/16/22 11/16/22 11/16/22 Range/Units 11:32 11:27 10:53 WBC (4.8-10.8) K/ul RBC (4.63-6.08) M/uL Hgb (14.0-18.0) g/dl Hct (40.1-51.0) % MCV (80.0-100.0) fL MCH (25.0-34.0) pg MCHC (32.0-36.0) g/dL RDW Std Deviation (36.4-46.3) fL RDW Coeff of Omega (11.5-14.5) % Plt Count (130-400) K/uL MPV (9.4-12.4) fL ABG pH 7.41 (7.35-7.45) ABG pCO2 38 (35-46) mmHg ABG pO2 110 H (80-95) mmHg ABG HCO3 24 (19-24) mmol/L ABG O2 Saturation 99.4 H (90-95) % ABG Base Excess -0.3 (-9-1.8) mEq/L Duane Test Pos (Pos) Oxygen Given 4 L Sodium (136-145) mmol/L Potassium (3.5-5.1) mmol/L Chloride (98-107) mmol/L Carbon Dioxide (21-32) mmol/L Anion Gap (3-11) BUN (6-23) mg/dl Creatinine (0.6-1.4) mg/dl Est Cr Clr Drug Dosing ml/min Est GFR ( Amer) ml/min Est GFR (Non-Af Amer) ml/min BUN/Creatinine Ratio (10-20) Glucose (70-99(Fasting)) mg/dl POC Glucose 205 H (70-99) mg/dl Estimat Average Glucose mg/dl Hemoglobin A1c (4.5-5.6) % Calcium (8.5-10.1) mg/dl Total Bilirubin (0.2-1.0) mg/dl AST (13-39) U/L ALT (7-52) U/L Alkaline Phosphatase (34-104) U/L Total Protein (6.0-8.3) gm/dl Albumin (3.4-5.0) gm/dl Globulin (2.5-4.0) gm/dl Albumin/Globulin Ratio (0.9-2) Urine Color Yellow Urine Appearance Clear (Clear) Urine pH 5.5 (4.5-7.5) Ur Specific [place] 1.019 (1.000-1.030) Urine Protein 1+ H (Negative) Urine Glucose (UA) Trace H (Negative) Urine Ketones Negative (Negative) Urine Blood Trace H (Negative) Urine Nitrite Negative (Negative) Urine Bilirubin Negative (Negative) Urine Urobilinogen Negative (Negative) Ur Leukocyte Esterase Negative (Negative) Urine WBC (Auto) 1-5 (0-5) /hpf Urine RBC (Auto) 0-4 (0-4) /hpf U Hyaline Cast (Auto) 5-10 H (0-5) /lpf U Epithel Cells (Auto) 10-20 H (0-5) /lpf Urine Bacteria (Auto) Negative (Negative) Urine Yeast Not Reportable Nasal Screen MRSA (PCR) (Negative) Urine Legionella Ag 11/16/22 11/16/22 11/16/22 Range/Units 10:53 05:36 02:45 WBC (4.8-10.8) K/ul RBC (4.63-6.08) M/uL Hgb (14.0-18.0) g/dl Hct (40.1-51.0) % MCV (80.0-100.0) fL MCH (25.0-34.0) pg MCHC (32.0-36.0) g/dL RDW Std Deviation (36.4-46.3) fL RDW Coeff of Omega (11.5-14.5) % Plt Count (130-400) K/uL MPV (9.4-12.4) fL ABG pH (7.35-7.45) ABG pCO2 (35-46) mmHg ABG pO2 (80-95) mmHg ABG HCO3 (19-24) mmol/L ABG O2 Saturation (90-95) % ABG Base Excess (-9-1.8) mEq/L [place]ane Test (Pos) Oxygen Given Sodium (136-145) mmol/L Potassium (3.5-5.1) mmol/L Chloride (98-107) mmol/L Carbon Dioxide (21-32) mmol/L Anion Gap (3-11) BUN (6-23) mg/dl Creatinine (0.6-1.4) mg/dl Est Cr Clr Drug Dosing ml/min Est GFR ( Amer) ml/min Est GFR (Non-Af Amer) ml/min BUN/Creatinine Ratio (10-20) Glucose (70-99(Fasting)) mg/dl POC Glucose (70-99) mg/dl Estimat Average Glucose 114 mg/dl Hemoglobin A1c 5.6 (4.5-5.6) % Calcium (8.5-10.1) mg/dl Total Bilirubin (0.2-1.0) mg/dl AST (13-39) U/L ALT (7-52) U/L Alkaline Phosphatase (34-104) U/L Total Protein (6.0-8.3) gm/dl Albumin (3.4-5.0) gm/dl Globulin (2.5-4.0) gm/dl Albumin/Globulin Ratio (0.9-2) Urine Color Urine Appearance (Clear) Urine pH (4.5-7.5) Ur Specific [place] (1.000-1.030) Urine Protein (Negative) Urine Glucose (UA) (Negative) Urine Ketones (Negative) Urine Blood (Negative) Urine Nitrite (Negative) Urine Bilirubin (Negative) Urine Urobilinogen (Negative) Ur Leukocyte Esterase (Negative) Urine WBC (Auto) (0-5) /hpf Urine RBC (Auto) (0-4) /hpf U Hyaline Cast (Auto) (0-5) /lpf U Epithel Cells (Auto) (0-5) /lpf Urine Bacteria (Auto) (Negative) Urine Yeast Nasal Screen MRSA (PCR) Negative (Negative) Urine Legionella Ag Pending Diagnostic Findings Chest X-Ray 11/17/22 07:00 XR chest 1V portable HISTORY: pneumonia COMPARISON: Chest CT 11/16/2022. FINDINGS: No pneumothorax. No pleural effusions. The heart is stable in size. Multifocal nodular and patchy airspace opacities are again noted consistent with a pneumonia. This most pronounced within the base of the left lower lobe. Degenerative changes within the shoulders. IMPRESSION: Redemonstration of the multifocal bilateral airspace opacities consistent with a pneumonia ACT 112: Negative or not required by law. Electronically signed by: Damon Day M.D. 11/17/2022 11:18 AM Resident Activity Tracking Resident Involvement: Resident Care Provided Care Provided: Adult Hospital Medicine
[2022-11-17] MEDS: OSELTAMIVIR PHOSPHATE 75 MG CAP PO SCH ×2 (08:06→20:46)
[2022-11-17] MEDS: INSULIN ASPART PER UNIT SC SCH ×4 (08:06→20:53)
[2022-11-17] MEDS: FLUTICASONE/VILANTEROL 200/25MCG 14 PUFFS/INHALER INH SCH (08:06)
[2022-11-17] MEDS: ENOXAPARIN INJ 40 MG/0.4 ML SYR SQ SCH (08:07)
[2022-11-17] MEDS: POLYETHYLENE (MIRALAX) 17 GM PACK PO SCH ×2 (08:07→20:54)
[2022-11-17] MEDS: guaiFENesin 600 MG TABCR PO SCH ×2 (08:07→20:46)
[2022-11-17] MEDS ORDERED: VANCOMYCIN HCL 1,000 MG in SODIUM CHLORIDE 0.9% 250 ML IV SCH (09:00)
[2022-11-17] MEDS ORDERED: MELATONIN 3 MG TAB PO PRN (11:04)
--- NOTE | 2022-11-17 11:19 | XRay Report ---
XR chest 1V portable HISTORY: pneumonia COMPARISON: Chest CT 11/16/2022. FINDINGS: No pneumothorax. No pleural effusions. The heart is stable in size. Multifocal nodular and patchy airspace opacities are again noted consistent with a pneumonia. This most pronounced within th e base of the left lower lobe. Degenerative changes within the shoulders. IMPRESSION: Redemonstration of the multifocal bilateral airspace opacities consistent with a pneumonia ACT 112: Negative or not required by law. Electronically signed by: Damon Day M.D. 11/17/2022 11:18 AM
[2022-11-17] MEDS: cefTRIAXone SODIUM 1,000 MG in DEXTROSE 5% AD-VAN 50 ML IV SCH (11:58)
--- NOTE | 2022-11-17 16:06 | Billing Data ---
Date of Service November 17, 2022 Coding Level of Care Code 09653 SUB INP/OBS CARE MIN
[2022-11-17] MEDS: amLODIPine BESYLATE 5 MG TAB PO SCH (20:46)
[2022-11-18] MEDS: LEVALBUTEROL HCL 0.63 MG/3 ML NEB NEB SCH ×4 (03:08→15:04)
[2022-11-18] MEDS: AZITHROMYCIN 500 MG in DEXTROSE 5% 250 ML IV SCH (04:03)
[2022-11-18] MEDS: NORMOSOL-R 1,000 ML IV SCH ×2 (04:04→12:31)
[2022-11-18 06:01] LABS: Hematocrit (blood only) 31.8 % (40.1-51.0); Hemoglobin 10.9 g/dl (14.0-18.0); Mean Corpuscular Hemoglobin 30.2 pg (25.0-34.0); Mean Corpuscular Hgb Conc 34.3 g/dL (32.0-36.0); Mean Corpuscular Volume 88.1 fL (80.0-100.0); Mean Platelet Volume 11.2 fL (9.4-12.4); Platelet Count 167 K/uL (130-400); RDW Coefficient of Variation 13.2 % (11.5-14.5); RDW Standard Deviation 42.9 fL (36.4-46.3); Red Blood Count 3.61 M/uL (4.63-6.08); White Blood Count 11.45 K/ul (4.8-10.8)
[2022-11-18 06:27] LABS: Albumin Level 2.9 gm/dl (3.4-5.0); BUN Creatinine Ratio 41.6 (10-20); Bilirubin,Total 0.4 mg/dl (0.2-1.0); Calcium 7.2 mg/dl (8.5-10.1); Creatinine Clr Calc Pharmacy 91.6 ml/min; Est GFR (Non-African American) 94.9 ml/min; Potassium 4.1 mmol/L (3.5-5.1); Total Protein 5.9 gm/dl (6.0-8.3)
--- NOTE | 2022-11-18 07:16 | Hospitalist Progress Note ---
Date of Service November 18, 2022 Assessment & Plan (1) Acute respiratory failure with hypoxia and hypercapnia: (2) Pneumonia: (3) Asthma exacerbation: (4) Influenza A: (5) Hypertension: Plan Hawk is a 56 y/o male with hx of moderate persistent asthma (on Symbicort/Fasenra, f/w Pulm/Allergy, FEV1 55% in 01/2022) and HTN who presented 11/16 for ARF with worsening dyspnea found to be hypoxic 83% and hypercapnic in the setting of Flu A with probable superimposed bacterial pneumonia admitted for respiratory support with BiPAP, antibiotics, and observation. Patient now clinically improving and stable for de-escalation of care. LLL PNA a/w Influenza A, ARF/Hypoxia (improved), and Respiratory Acidosis (resolved) - Known hx of moderate-persistent asthma, on Fasenra (immunocompromised state) - CXR with multifocal/bibasilar opacities (L>R) - Influenza A positive with likely a superimposed bacterial pneumonia (multifocal/bibasilar, L>R) - Labs significant for procalcitonin 28.33, significant lymphopenia 0.25, Na 133, Mg 1.7. Otherwise CBC/CMP/hsTroponin WNL. - Pt. required BiPAP d/t respiratory failure which improved his respiratory acidosis - Broad abx coverage was started as patient was clinically ill - cefipime, vanc, azithro, transitioned to pred 40 mg, ceftriaxone, and azithro w/o vanc d/t clinical improvement - MRSA Nares - negative - Urine Legionella - negative - Urine [id number] - pending --- Continue Duoneb (Xopenex) Q4 and Prednisone 40 mg PO daily --- Continue Tamiflu 75 mg PO BID for 5 days, last dose 11/21 --- Continue Ceftriaxone and Azithromycin, broaden if evidence of clinical decline --- Blood cultures - no growth at 48 hours --- Leukocytosis present (11.45) --- Follow CXR Psychiatric Concern - 'Gloomy thoughts' when patient closes his eyes - Known hx of homicidal ideations, anxiety, and depression which improved since establishing support system - Teller Supervisor visit requested - Possible component of delerium d/t acute illness ---Recommend delirium precautions - minimize interruptions, awake during day, sleep at night, avoid benzos. Continue to monitor. Mod-Persistent Asthma - Continue home medications (Symbicort and Fasenra), rare use of Albuterol for acute sx at home - Non-smoker - Received Flu/COVID vaccines Anemia - Hgb stable on admission (14.6), currently 10.9, no active bleeding - Received aggressive fluid resuscitation, possibly dilutional vs hemolytic - Continue to follow HTN - Continue home amlodipine Constipation - Patient has a long standing history of constipation. - Likely worsened in the setting of decreased PO intake and BiPAP use. --- Continue Miralax 34 gm BID. FEN/GI: regular diet, Normosol-R @125cc/hr DVT Prophylaxis: Lovenox SQ Code Status: full code Disposition: med/surg Admission and Anticipated Discharge Date Admission Date: November 16, 2022 Jose Arechiga is a 56 y/o male with hx of moderate persistent asthma (on Symbicort/Fasenra, f/w Pulm/Allergy, FEV1 55% in 01/2022) and HTN who presented 1 for ARF with worsening dyspnea found to be hypoxic 83% and hypercapnic in the setting of Flu A with probable superimposed bacterial pneumonia admitted for respiratory support with BiPAP, antibiotics, and observation. Patient now clinically improving and stable for de-escalation of care. Patient was awake and resting comfortably upon arrival to the room. He notes that he feels overall improved. Patient notes that other than some dyspnea with ambulation to the bathroom, he is feeling well. He denies any chest pain or pleuritic pain and is not having any abdominal pain, bowel/bladder changes, headaches, or fevers/chills. Patient ntoes that he is eating and drinking well. Review of Systems Review of Systems: See HPI Physical Exam Physical Exam: Gen: NAD, alert, interactive, AO x3 HEENT: Supple, no LAD, no thyromegaly, no JVD Resp:Non-labored on RA, bilateral faint expiratory wheezing in all dent CV:RRR, normal S1/S2, no M/R/G Abd: Soft, non-distended, no TTP, normoactive bowels, no masses Extr: 2+ dp bilaterally, no edema Skin: No rashes lesions or erythema Results & Data Results & Data ([facility]) Vital Signs (Past 12 Hours) Vital Signs Temp Pulse Resp BP Pulse Ox O2 Del Method 11/18/22 03:08 60 16 90 Room Air 11/17/22 23:06 50 L 16 94 Room Air 11/17/22 22:07 Room Air 11/17/22 20:41 36.6 C 60 18 128/70 93 Room Air 11/17/22 20:05 51 L 18 96 Room Air Laboratory Results Abnormal lab results 11/17/22 11/17/22 11/17/22 Range/Units 11:07 17:12 20:45 WBC (4.8-10.8) K/ul RBC (4.63-6.08) M/uL Hgb (14.0-18.0) g/dl Hct (40.1-51.0) % BUN (6-23) mg/dl BUN/Creatinine Ratio (10-20) Glucose (70-99(Fasting)) mg/dl POC Glucose 172 H 163 H 165 H (70-99) mg/dl Calcium (8.5-10.1) mg/dl AST (13-39) U/L ALT (7-52) U/L Total Protein (6.0-8.3) gm/dl Albumin (3.4-5.0) gm/dl 11/18/22 11/18/22 11/18/22 Range/Units 05:17 05:17 08:08 WBC 11.45 H (4.8-10.8) K/ul RBC 3.61 L (4.63-6.08) M/uL Hgb 10.9 L (14.0-18.0) g/dl Hct 31.8 L (40.1-51.0) % BUN 37 H (6-23) mg/dl BUN/Creatinine Ratio 41.6 H (10-20) Glucose 187 H (70-99(Fasting)) mg/dl POC Glucose 132 H (70-99) mg/dl Calcium 7.2 L (8.5-10.1) mg/dl AST 65 H (13-39) U/L ALT 72 H (7-52) U/L Total Protein 5.9 L (6.0-8.3) gm/dl Albumin 2.9 L (3.4-5.0) gm/dl 11/18/22 Range/Units 12:12 WBC (4.8-10.8) K/ul RBC (4.63-6.08) M/uL Hgb (14.0-18.0) g/dl Hct (40.1-51.0) % BUN (6-23) mg/dl BUN/Creatinine Ratio (10-20) Glucose (70-99(Fasting)) mg/dl POC Glucose 153 H (70-99) mg/dl Calcium (8.5-10.1) mg/dl AST (13-39) U/L ALT (7-52) U/L Total Protein (6.0-8.3) gm/dl Albumin (3.4-5.0) gm/dl Diagnostic Findings Chest X-Ray 11/18/22 07:00 XR chest 1V portable HISTORY: Shortness of breath. pneumonia COMPARISON: Chest 11/17/2022. FINDINGS: No pneumothorax. No pleural fusions. The heart is stable in size. Multifocal nodular and patchy airspace opacities are again noted consistent with a pneumonia. This is most pronounced within the base of the left lower lobe. Degenerative changes within the shoulders. IMPRESSION: No significant change in the multifocal bilateral airspace opacities consistent with a pneumonia. Resident Activity Tracking Resident Involvement: Resident Care Provided Care Provided: Adult Hospital Medicine
--- NOTE | 2022-11-18 07:57 | XRay Report ---
XR chest 1V portable HISTORY: Shortness of breath. pneumonia COMPARISON: Chest 11/17/2022. FINDINGS: No pneumothorax. No pleural fusions. The heart is stable in size. Multifocal nodular and pa tchy airspace opacities are again noted consistent with a pneumonia. This is most pronounced within t he base of the left lower lobe. Degenerative changes within the shoulders. IMPRESSION: No significant change in the multifocal bilateral airspace opacities consistent with a pneumonia. ACT 112: Negative or not required by law. Electronically signed by: Damon Day M.D. 11/18/2022 7:56 AM
[2022-11-18] MEDS: OSELTAMIVIR PHOSPHATE 75 MG CAP PO SCH (08:12)
[2022-11-18] MEDS: ENOXAPARIN INJ 40 MG/0.4 ML SYR SQ SCH (08:12)
[2022-11-18] MEDS: guaiFENesin 600 MG TABCR PO SCH (08:12)
[2022-11-18] MEDS: POLYETHYLENE (MIRALAX) 17 GM PACK PO SCH (08:12)
[2022-11-18] MEDS: FLUTICASONE/VILANTEROL 200/25MCG 14 PUFFS/INHALER INH SCH (08:13)
[2022-11-18] MEDS ORDERED: predniSONE 20 MG TAB PO SCH (09:00)
[2022-11-18] MEDS: INSULIN ASPART PER UNIT SC SCH ×3 (09:51→17:45)
[2022-11-18] MEDS: cefTRIAXone SODIUM 1,000 MG in DEXTROSE 5% AD-VAN 50 ML IV SCH (12:38)
--- NOTE | 2022-11-18 17:16 | Discharge Summary ---
Date of Service November 18, 2022 Admission HPI Per Admitting Provider Hawk Nguyễn is a 56yo male with PMHx significant for moderate persistent asthma (on Symbicort/Fasenra, f/w Pulm/Allergy, FEV1 55% in 01/2022) and HTN who presented to [facility] ED on 11/16 for worsening shortness of breath at rest, productive cough, wheezing, subjective/fever chills and significantly decreased PO intake x3 days, with recent +sick contacts. He has been using Albuterol inhaler Q6H with jkycytn-eu-mg relief in SOB/cough. Patient is vaccinated for influenza and up to date on COVID-19 vaccinations. Patient is a never smoker. Usually only "very rarely" uses PRN Albuterol and takes both Symbicort as well as Fasenra injections as prescribed. In the ED the patient was febrile to 37.9C and hypoxic to 83% on room air; initially improved to mid-90s on 4L/min nasal cannula. Additionally patient received SoluMedrol 60mg IV and Duonebs x1 before my examination. However during my examination the patient had very shallow breathing and appeared exhausted, with sats decreasing to low-80s on 4L. Subsequently was placed on high-flow NC at 30L; ABGs obtained stat which showed significant non-compensated respiratory acidosis: pH 7.2, pCO2 69, pHCO3 27 (no previous values to compare to). Patient was then placed on BiPAP and immediately started breathing more comfortably with more complete inspiration/expiration and more energy; was maintaining sats at 95% on 50% FiO2 with BiPAP. Labs significant for procalcitonin 28.33, significant lymphopenia 0.25, Na 13, Mg 1.7. Otherwise CBC/CMP/hsTroponin WNL. Influenza A positive. CXR with multifocal/bibasilar opacities (L>R). Blood cultures collected in ED. Patient also received 2L NSS boluses. Admission Exam Per Admitting Provider General: A&Ox3. NAD. Cooperative. Fatigued, although improved energy since starting on BiPAP. BiPAP in place. HEENT: Atraumatic, normocephalic. Pulm: Bibasilar crackles and scattered wheezes throughout, with decreased aeration bilaterally. Tachypneic, expiration through pursed lips, +tracheal tugging, +increased work of breathing. Cardiac: RRR, -mrg. Radial pulses intact and symmetrical. No LE edema. Capillary refill <3 seconds. Abdominal: soft, non-tender, non-distended, BS x 4\\ Skin: pale but warm and well-perfused Principal Diagnosis Acute Respiratory Failure a/w Pneumonia and Asthma Exacerbation Discharge Exam Gen: NAD, alert, interactive, flat affect HEENT: Supple, no LAD, no thyromegaly, no JVD Resp:Non-labored, diffuse expiratory wheezing (0800), CTAB (1600) CV:RRR, normal S1/S2, no M/R/G Abd: Soft, non-distended, no TTP, normoactive bowels, no masses Extr: 2+ dp bilaterally, no edema Skin: No rashes lesions or erythema Discharge Data Allergies Allergy/AdvReac Type Severity Reaction Status Date / Time latex Allergy Unknown RED Verified 05/23/22 09:32 No Known Drug Allergies Allergy Unknown . Verified 05/23/22 09:32 Consultations 11/16/22 03:42 ED Decision to Admit Stat Ordered Studies 11/16/22 03:40 CT chest diagnostic wo con Stat Chest X-Ray 11/18/22 07:00 XR chest 1V portable HISTORY: Shortness of breath. pneumonia COMPARISON: Chest 11/17/2022. FINDINGS: No pneumothorax. No pleural fusions. The heart is stable in size. Multifocal nodular and patchy airspace opacities are again noted consistent with a pneumonia. This is most pronounced within the base of the left lower lobe. Degenerative changes within the shoulders. IMPRESSION: No significant change in the multifocal bilateral airspace opacities consistent with a pneumonia. ACT 112: Negative or not required by law. Electronically signed by: Damon Day M.D. 11/18/2022 7:56 AM Hospital Course (1) Acute respiratory failure with hypoxia and hypercapnia: (2) Pneumonia: (3) Asthma exacerbation: (4) Influenza A: (5) Hypertension: Tony Arechiga is a 56 y/o male with hx of moderate persistent asthma (on Symbicort/Fasenra, f/w Pulm/Allergy, FEV1 55% in 01/2022) and HTN who presented 11/16 for ARF with worsening dyspnea found to be hypoxic 83% and hypercapnic in the setting of Flu A with probable superimposed bacterial pneumonia admitted for respiratory support with BiPAP, antibiotics, and observation. Patient now clinically improving and stable for de-escalation of care. LLL PNA a/w Influenza A, ARF/Hypoxia (improved), and Respiratory Acidosis (resolved) - Known hx of moderate-persistent asthma, on Fasenra (immunocompromised state) -CXR with multifocal/bibasilar opacities (L>R) - Influenza A positive with likely a superimposed bacterial pneumonia (multifocal/bibasilar, L>R) - Labs significant for procalcitonin 28.33, significant lymphopenia 0.25, Na 133, Mg 1.7. Otherwise CBC/CMP/hsTroponin WNL. - Pt. required BiPAP d/t respiratory failure which improved his respiratory acidosis - Broad abx coverage was started as patient was clinically ill - cefipime, vanc, azithro, transitioned to pred 40 mg, ceftriaxone, and azithro w/o vanc d/t clinical improvement - MRSA Nares - negative - Urine Legionella - negative - Urine [id number]-[id number] - pending - Blood cultures - no growth at 48 hours - Leukocytosis present (11.45) --- Continue Zithromax 250 mg for 5 day course --- Dc on Cefdinir 300 mg BID for 10 day course of Cephalosporin --- Continue Prednisone 40 mg daily for 3 days, 30 mg daily for 2 days, and 10 mg daily for 2 days, then discontinue --- Follow up with PCP in 1 week Psychiatric Concern - 'Gloomy thoughts' when patient closes his eyes - Known hx of homicidal ideations, anxiety, and depression which improved since establishing support system - [employer] Super[employer] visit requested - Possible component of delerium d/t acute illness ---Recommend delirium precautions - minimize interruptions, awake during day, sleep at night, avoid benzos. Continue to monitor. Mod-Persistent Asthma - Continue home medications (Symbicort and Fasenra), rare use of Albuterol for acute sx at home - Non-smoker - Received Flu/COVID vaccines Anemia - Hgb stable on admission (14.6), currently 10.9, no active bleeding - Received aggressive fluid resuscitation, possibly dilutional vs hemolytic --- Continue to follow outpatient HTN - Continue home amlodipine Constipation - Patient has a long standing history of constipation. - Likely worsened in the setting of decreased PO intake and BiPAP use. --- Continue Miralax 34 gm BID PRN FEN/GI: regular diet, Normosol-R @125cc/hr DVT Prophylaxis: Lovenox SQ inpt Code Status: full code Disposition: Home Total Time Total Time Spent Total Time Spent (In Minutes): See attending attestation Discharge Plan Discharge Items Patient Disposition: Home - Self-Care Reason For Visit: PNEUMONIA,FLU,ASTHMA EXACERBATION Discharge Diagnosis: LLL Pneumonia a/w asthma exacerbation Condition on Discharge: Good Activity: Per Instructions section Non-emergency contact: Primary Care Provider Call non-emergency contact if: you have any medication questions, your symptoms worsen, your pain is concerning for you and your temperature is above 101.5 Follow-up/Referrals: Cristian Jacques MD [Primary Care Provider] - Diet: Regular Addtl Attending Provider Instructions: You were admitted to the hospital for respiratory failure associated with pneumonia and an asthma exacerbation. This likely started with an Influenza A infection and transitioned into a bacterial infection. You were treated with BiPAP (assistance breathing), antibiotics, steroids, and nebulizers. You clinically improved with the previously mentioned treatments to the point that you are stable enough to continue recovery at home. A discharge summary will be sent to your primary care physician to ensure continuity of care. Please bring this discharge summary with you to your next office appointment so that your provider can review it at that time. Follow-up appointments: - Make a follow-up appointment with your PCP within the next week. It is very important that you follow up with them shortly after discharge from the hospital. We have requested a follow-up appointment with your primary care physician within one week of discharge. Please call their office if you do not hear from them. Medications: - Your medication list has been reviewed and reconciled upon discharge to ensure accuracy and continuity of care. An updated list of all your medications is included with your hospital discharge paperwork. Please review this list closely, and make note of any changes. - We sent a new medication called Azithromycin. Please take Azithromycin 250 mg daily for two more days (for a total of 5 days). - We sent a new medication call Cefdinir. Please take Cefdinir 300 mg twice daily for 7 more days (for a total of 10 days) - We sent a new medication called Prednisone. Please take Prednisone 40 mg (4 pills) for 3 days, 30 mg (3 pills) for 2 days, and 10 mg (1 pill) for 2 days and then stop taking Prednisone. - If you have any issues filling these prescriptions, please call [phone] and ask to leave a message for Dr. Bradshaw. - Take your medications as instructed; do not skip a dose of your medicines. Make sure all of your doctors know every medicine you are taking (including wjrz-gij-vuwecup medicines, vitamins, and supplements). - Call your primary care provider before taking any new medicines (including over- the-counter medicines, vitamins, and supplements), because some of these may interact with your current medications, or may make your symptoms worse. - Tell your primary care provider if you cannot afford your medications. Contact your Primary Care Provider if you experience: - Mild chest discomfort or difficulty breathing - A fever - Difficulty following your treatment plan or taking medications Call 911 or go to the emergency department if you experience: - Sudden, severe abdominal pain or nausea/vomiting - Severe chest pain, or chest pain that radiates (moves) to your jaw or arm - Sudden, severe shortness of breath or difficulty breathing It was a pleasure to be a part of your care, Dr. Natalya Bradshaw Pending Studies at Discharge: No Stand-Alone Forms: [employer], Work/School Release, Smoking Cessation Medications and DC Order Prescriptions: New cefdinir 300 mg capsule 300 mg PO BID 7 Days Qty: 14 0RF prednisone 10 mg tablet 10 mg PO DIRECTED 7 Days Qty: 20 0RF Rx Instructions: Take 40 mg daily (4 pills) for 3 days Take 30 mg daily (3 pills) for 2 days Take 10 mg daily (1 pill) for 2 days azithromycin 250 mg tablet 250 mg PO DAILY 2 Days Qty: 2 0RF Continued amlodipine 5 mg tablet 5 mg PO QPM Qty: 90 3RF Fasenra 30 mg/mL syringe See Rx Instructions .ROUTE .COMPLEX Qty: 1 6RF Dose Instruction: INJECT 30MG SUBCUTANEOUSLY EVERY 4 WEEKS FOR 3 MONTHS, THEN EVERY 8 WEEKS THEREAFTER (GIVEN AT MD OFFICE) Rx Instructions: INJECT 30MG SUBCUTANEOUSLY EVERY 8 WEEKS budesonide-formoterol [Symbicort] 160-4.5 mcg/actuation HFA aerosol inhaler 2 puff inhalation BID Qty: 10.2 2RF albuterol sulfate 90 mcg/actuation HFA aerosol inhaler See Rx Instructions inhalation .COMPLEX Qty: 2 6RF Rx Instructions: inhalation 2 puffs every 4 hrs PRN; nystatin 100,000 unit/gram cream 1 applic topical BID Qty: 30 2RF Discharge Orders: Discharge Order (Routine); Ordered 11/18/22 Ordered By: Natalya Whitt/Other Patient Handouts: The Flu (Influenza), Asthma Admission Data Admit Date/Time: 11/16/22 03:56 Attending Provider: Lucio Banuelos Admit Provider: Timothy Solano Primary Care Provider: Cristian Jacques Other Providers: Carlos Rodríguez Other Interventions: Discharge Summary Assessment (RN) Last Done: 11/18/22 17:57 Supervising Physician Co-Signing Physician Notes I personally examined the patient and verified all peterson points of history and exam, discussed case, and agree with decision making with Dr Bradshaw Overall feeling better. Still some dyspnea on exertionbut notes that it has improved throughout the day, and he feels up to going home. vitals noted in general he is in no distress. HEENT normocephalic atraumatic mucous membranes moist. Lungs are actually overall quite clear with good air entry throughout no rales rhonchi or wheezes no accessory muscle use good effort. flu/pneumonia, acute hypercapnic > hypoxic respiratory failure -doing much better. Stable for home. Finish out a course of Zithromax/cefdinir, steroid taper. DVT proph - lovenox utilized during his stay Stable for home, outpatient follow-up Resident Activity Tracking Resident Involvement: Resident Care Provided Care Provided: Adult [facility] Medicine
--- NOTE | 2022-11-18 19:15 | Billing Data ---
Date of Service November 18, 2022 Coding Level of Care Code HOSP INP/OBS DISCH 30 MIN/LESS
--- NOTE | 2022-11-27 08:56 | Coding Query ---
To promote full compliance with coding requirements relating to patient care, provider participation is requested in all cases of activities leader uncertainty. Please assist us with the question(s) below: Coding Question(s): The diagnosis below was documented in the ER, H&P and 11/16 Progress Note, then subsequently fell off all further documentation. Please indicate if it is still a possible diagnosis or ruled out. Physician's Response(s): EVOLVING SEPSIS - (ER documents, "IV fluids also started due to concern for decreased intake and evolving sepsis" and the H&P and 11/16 Progress Note document, "initially just met SIRS criteria for sepsis (HR/RR)"). ( x ) Diagnosed and POA. Please specify further, in your clinical opinion, to specify the most likely source of Sepsis: ( x ) Influenza A ( x ) Bacterial Pneumonia ( ) Other: Please Specify ( ) Unknown ( ) Diagnosed and not POA. Please specify further, in your clinical opinion, to specify the most likely source of Sepsis: ( ) Influenza A ( ) Bacterial Pneumonia ( ) Other: Please Specify ( ) Unknown ( ) Ruled out ( ) Other (please specify) MTDD
== END 2022-11-18 19:43 | disposition home or self-care (01) | DRG 871 ==
LOC: ED 01:48 → SUATTDRO 03:56 → 1E 03:56 → 3E 11-17 15:38
DX: Z79.899 Other long term (current) drug therapy; D84.821 Immunodeficiency due to drugs; J45.41 Moderate persistent asthma with (acute) exacerbation; J10.08 Influenza due to other identified influenza virus with other specified pneumonia; D64.9 Anemia, unspecified; J96.01 Acute respiratory failure with hypoxia; J96.02 Acute respiratory failure with hypercapnia; J44.0 Chronic obstructive pulmonary disease with (acute) lower respiratory infection; J15.9 Unspecified bacterial pneumonia; F05 Delirium due to known physiological condition; A41.89 Other specified sepsis; T48.6X5A Adverse effect of antiasthmatics, initial encounter; Z91.040 Latex allergy status; K59.09 Other constipation; I10 Essential (primary) hypertension